=== PATIENT | female | born 2000 ===

== ENCOUNTER 2025-04-20 16:51 | Emergency (ER) | payer OTHER, SELFPAY ==
--- NOTE | ~2025-04-20 | XR_ITS ---
HISTORY: Anterior lateral ankle pain without history of trauma COMPARISON: None TECHNIQUE: 3 views of the right ankle were performed FINDINGS: No acute fracture or dislocation. No significant soft tissue swelling. Os trigonum is incidentally noted. The ankle mortise is preserved. Bone mineralization is age-appropriate. IMPRESSION: No acute fracture, dislocation or significant swelling. Reviewed, dictated and finalized at location A.
--- NOTE | 2025-04-20 16:53 | ED_ITS ---
HPI - Extremity Injury (Lower) General Chief Complaint: Extremity Injury, Lower Stated Complaint: R Ankle Pain Time Seen by Provider: 04/20/25 16:52 Source: patient Mode of arrival: ambulatory Limitations: no limitations History of Present Illness HPI Narrative: Corey is a 25-year-old female patient presenting to the clinic today with complaints of right ankle pain x1 week. She reports no known injury. 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 Is having pain to the anterior and right lateral ankle. Pain with ambulation and with range of motion. States pain radiates into her 2nd toe at times. Has taken Tylenol and iced it. Last menstrual period current-denies chance of . Related Data Allergies Allergy/AdvReac Type Severity Reaction Status Date / Time ibuprofen AdvReac Intermediate Dizziness Verified 04/20/25 17:05 Review of Systems Review of Systems: Pertinent positives per HPI. Patient denies any fever, chills, rash, headache, visual changes, dizziness, cough, runny nose, sore throat, shortness of breath, chest pain, palpitations, nausea, vomiting, diarrhea, constipation, abdominal pain, or any urinary issues. PMFSH Comments At the time of my signature, I reviewed and agree with the nursing past medical, surgical, social, and family history. There is no relevant family history pertinent to the patient complaint. Exam Narrative: General: Well-developed, well nourished, in no apparent distress Head: Normocephalic, atraumatic. Cardio: Regular rate and rhythm, s1 and s2 normal, no murmur appreciated. Resp: Clear to auscultation bilaterally, no rhonchi, rales, wheezing or rubs. Musculoskeletal: No deformity, non-tender to palpation, grossly normal range of motion, muscle strength strong and equal, peripheral pulse strong, no edema, no cyanosis, normal gait and station Course Course Emergency Course: Portions of this record may have been created with voice recognition software. Level of Care: Express Care Visit Vital Signs Vital signs: Vital Signs Temperature 36.6 C 04/20/25 17:01 Pulse Rate 72 04/20/25 17:01 Respiratory Rate 16 04/20/25 17:01 Blood Pressure 130/72 04/20/25 17:01 Pulse Oximetry 100 04/20/25 17:01 Oxygen Delivery Room Air 04/20/25 17:01 Temperature 36.6 C 04/20/25 17:01 Pulse Rate 72 04/20/25 17:01 Respiratory Rate 16 04/20/25 17:01 Blood Pressure 130/72 04/20/25 17:01 Pulse Oximetry 100 04/20/25 17:01 Oxygen Delivery Room Air 04/20/25 17:01 Vital signs reviewed MDM - Extremity Injury (Lower) MDM Narrative Medical decision making narrative: At the time of visit patient is resting comfortably on the exam table. Patient appears to be nontoxic. Diagnostics: X-ray of the right ankle was performed. X-ray was negative for any fracture or malalignment. Plan: I suspect patient has a foot sprain. Prescription for Medrol Dosepak was sent to the pharmacy. Supportive measures were discussed with the patient and they voiced understanding discharge instructions and agrees to treatment plan. Return precautions reviewed Differential Diagnosis Differential diagnosis: Likely ankle sprain and strain and ankle fracture Imaging Data Radiologist's impression: ITS Impressions Ankle X-Ray 04/20/25 17:30 IMPRESSION: No acute fracture, dislocation or significant swelling. Discharge Plan Discharge Clinical Impression: Foot sprain Qualifiers: Encounter type: initial encounter Laterality: right Qualified Code(s): S93.601A - Unspecified sprain of right foot, initial encounter Patient Disposition: Home Condition: Stable Instructions: Antibiotic Form, Foot Sprain (ED) Additional Instructions: Rest, ice, elevate, and wear ed wrap as directed Tylenol for pain as discussed. Gradually bear weight No running or sports until healed. Take Medrol Dosepak as prescribed Follow up with your PCP if symptoms persist more than 1 week. Patient Language: Maldivian Prescriptions: New methylprednisolone [Medrol (Bryce)] 4 mg tablets,dose pack See Rx Instructions PO .COMPLEX Qty: 21 0RF Rx Instructions: orally per package directions Follow-up/Referrals: UNKNOWN,DOCTOR [Non-Staff] - Time of Disposition: 17:36 Quality NIHSS Nursing Documentation ED NIHSS nursing documentation: reviewed/agree
--- OUTSIDE RECORDS SUMMARY | 2025-04-20 16:54 | XMS_ITS | Encounter Summary ---
Author Organization [facility] Address [address] [place] [address] Care Team Providers Care Pipe And Test Supervisor Name Role Phone Tien Jefferson MD Primary Care Provider [phone] Encounter Details Date Type Department Care Team (Latest Contact Info) Description 10/24/2006 Outpatient Historical [facility] Pediatrics - 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
--- OUTSIDE RECORDS SUMMARY | 2025-04-20 16:54 | XMS_ITS | Encounter Summary ---
Author Organization [facility] Address [address] [place] [address] Care Team Providers Care Cooling Room Attendant Name Role Phone Tien Jefferson MD Primary Care Provider [phone] Encounter Details Date Type Department Care Team (Late st Contact Info) Description 09/28/2001 Outpatient Historical [facility] Pediatrics - [facility] [address] [facility] [address] [address] Jamia Osman MD NO ADDRESS ON FILE Social History Tobacco Use Types Packs/Day Years Used Date Smoking Tobacco: Never Assessed Comments Unknown Sex and Gender Information Value Date Recorded Sex Assigned at Not on file 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
--- OUTSIDE RECORDS SUMMARY | 2025-04-20 16:54 | XMS_ITS | Encounter Summary ---
Author Organization [facility] Address [address] [place] [address] Care Team Providers Care General Farm Manager Name Role Phone Tien Jefferson MD Primary Care Provider [phone] Encounter Details Date Type Department Care Team (Latest Contact Info) Description 02/18/2008 Outpatient Historical [facility] Pediatrics [facility] [address] [facility] [address] [address] Jamia Osman MD NO ADDRESS ON FILE Acute Pharyngitis Social History Tobacco Use Types Packs/Day Years Used Date Smoking Tobacco: Never Assessed Comments Unknown Sex and Gender Information Value Date Recorded Sex Assigned at Not on file 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 INTERFACE SYSTEM Specimen from throat (specimen) 02/18/2008 10:29 PM CDT 02/18/2008 10:38 PM CDT Narrative INTERFACE SYSTEM - 02/19/2008 9:03 AM CDT called drs office and talked to mulugeta she checked demographic sheet and insurance and correct spelling is kacy vazquez. like in the computer. office spelled wrong on requisition 02/19/08 9:03 AMrj us Jamia Osman MD MICROBIOLOGY - GENERAL ORDERAB LES Final Result INTERFACE SYSTEM Refer to clinic/hospital department documented in this encounter Visit Diagnoses Diagnosis Acute pharyngitis documented in this encounter Care Teams General Farm Manager Relationship Specialty Start Date End Date Tien Jefferson MD [address] [address] PCP - General Internal Medicine 04/19/19 documented as of this encounter
--- OUTSIDE RECORDS SUMMARY | 2025-04-20 16:54 | XMS_ITS | Encounter Summary ---
Author Organization [facility] Address [address] [place] [address] Care Team Providers Care Financial Planning Assistant Name Role Phone Tien Jefferson MD Primary Care Provider [phone] Encounter Details Date Type Department Care Team (Late st Contact Info) Description 09/14/2001 Outpatient Historical [facility] Pediatrics - [facility] [address] [facility] [address] [address] Jamia Osman MD NO ADDRESS ON FILE Social History Tobacco Use Types Packs/Day Years Used Date Smoking Tobacco: Never Assessed Comments Unknown Sex and Gender Information Value Date Recorded Sex Assigned at Not on file Legal Sex Female 2:03 AM FAMILY LAW LEGAL ASSISTANT Gender Identity Not on file Sexual Orientation Not on file documented as of this encounter Plan of Treatment Not on file documented as of this encounter Visit Diagnoses Not on filedocumented in this encounter Care Teams Financial Planning Assistant Relationship Specialty Start Date End Date Tien Jefferson MD [address] [facility] [address] [place] [address] PCP - General Internal Medicine 04/19/19 documented as of this encounter
--- OUTSIDE RECORDS SUMMARY | 2025-04-20 16:54 | XMS_ITS | Encounter Summary ---
Author Organization [facility] Address 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
--- OUTSIDE RECORDS SUMMARY | 2025-04-20 16:54 | XMS_ITS | Encounter Summary ---
Author Organization [facility] Address [address] [place] [address] Care Team Providers Care Filler Wiper Name Role Phone Tien Jefferson MD Primary Care Provider [phone] Encounter Details Date Type Department Care Team (Late st Contact Info) Description 07/21/2000 Outpatient Historical [facility] Pediatrics - [facility] [address] [facility] [address] [address] Jamia Osman MD NO ADDRESS ON FILE Social History Tobacco Use Types Packs/Day Years Used Date Smoking Tobacco: Never Assessed Comments Unknown Sex and Gender Information Value Date Recorded Sex Assigned at Not on file 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
--- OUTSIDE RECORDS SUMMARY | 2025-04-20 16:54 | XMS_ITS | Encounter Summary ---
Author Organization [facility] Address [address] [place] [address] Care Team Providers Care Rice Drier Operator Name Role Phone Tien Jefferson MD Primary Care Provider [phone] Encounter Details Date Type Department Care Team (Late st Contact Info) Description 05/22/2001 Outpatient Historical [facility] Pediatrics - [facility] [address] [facility] [address] [address] Jamia Osman MD NO ADDRESS ON FILE Social History Tobacco Use Types Packs/Day Years Used Date Smoking Tobacco: Never Assessed Comments Unknown Sex and Gender Information Value Date Recorded Sex Assigned at Not on file Legal Sex Female 2:03 AM COMPLETIONS ENGINEER Gender Identity Not on file Sexual Orientation Not on file documented as of this encounter Plan of Treatment Not on file documented as of this encounter Visit Diagnoses Not on filedocumented in this encounter Care Teams Rice Drier Operator Relationship Specialty Start Date End Date Tien Jefferson MD [address] [facility] [address] [place] [address] PCP - General Internal Medicine 04/19/19 documented as of this encounter
--- OUTSIDE RECORDS SUMMARY | 2025-04-20 16:54 | XMS_ITS | Encounter Summary ---
Author Organization [facility] Address [address] [place] [address] Care Team Providers Care Turpentiner Name Role Phone Tien Jefferson MD Primary Care Provider [phone] Encounter Details Date Type Department Care Team (Late st Contact Info) Description 05/10/[address] 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
--- OUTSIDE RECORDS SUMMARY | 2025-04-20 16:54 | XMS_ITS | Encounter Summary ---
Author Organization [facility] Address [address] [place] [address] Care Team Providers Care Dope Edger Name Role Phone Tien Jefferson MD Primary Care Provider [phone] Encounter Details Date Type Department Care Team (Late st Contact Info) Description 04/24/2002 Outpatient Historical [facility] Pediatrics - [facility] [address] [facility] [address] [address] Stella Brothers MD [address] [facility] [address] [place] [address] Social History Tobacco Use Types Packs/Day Years Used Date Smoking Tobacco: Never Assessed Comments Unknown Sex and Gender Information Value Date Recorded Sex Assigned at Not on file 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 [address] [place] [address] PCP - General Internal Medicine 04/19/19 documented as of this encounter
--- OUTSIDE RECORDS SUMMARY | 2025-04-20 16:54 | XMS_ITS | Encounter Summary ---
Author Organization [facility] Address [address] [place] [address] Care Team Providers Care Senior Medical Billing Specialist Name Role Phone Tien Jefferson MD Primary Care Provider [phone] Encounter Details Date Type Department Care Team (Late st Contact Info) Description 10/13/2001 Outpatient Historical [facility] Pediatrics - [facility] [address] [facility] [address] [address] Jamia Osman MD NO ADDRESS ON FILE Social History Tobacco Use Types Packs/Day Years Used Date Smoking Tobacco: Never Assessed Comments Unknown Sex and Gender Information Value Date Recorded Sex Assigned at Not on file Legal Sex Female 2:03 AM BAND TACKER Gender Identity Not on file Sexual Orientation Not on file documented as of this encounter Plan of Treatment Not on file documented as of this encounter Visit Diagnoses Not on filedocumented in this encounter Care Teams Senior Medical Billing Specialist Relationship Specialty Start Date End Date Tien Jefferson MD [address] [facility] [address] [place] [address] PCP - General Internal Medicine 04/19/19 documented as of this encounter
--- OUTSIDE RECORDS SUMMARY | 2025-04-20 16:54 | XMS_ITS | Encounter Summary ---
Author Organization [facility] Address 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
--- OUTSIDE RECORDS SUMMARY | 2025-04-20 16:54 | XMS_ITS | Encounter Summary ---
Author Organization [facility] Address [address] [place] [address] Care Team Providers Care Machining Engineer Name Role Phone Tien Jefferson MD Primary Care Provider [phone] Encounter Details Date Type Department Care Team (Late st Contact Info) Description 03/23/2004 Outpatient Historical [facility] Pediatrics - [facility] [address] [facility] [address] [address] Dillan Stokes MD [address] [place], [place] [id number] [place] [address] Social History Tobacco Use Types Packs/Day Years Used Date Smoking Tobacco: Never Assessed Comments Unknown Sex and Gender Information Value Date Recorded Sex Assigned at Not on file Legal Sex Female 2:03 AM DAY CARE AIDE Gender Identity Not on file Sexual Orientation Not on file documented as of this encounter Plan of Treatment Not on file documented as of this encounter Visit Diagnoses Not on filedocumented in this encounter Care Teams Machining Engineer Relationship Specialty Start Date End Date Tien Jefferson MD [address] [place] [address] [address] [place] [address] PCP - General Internal Medicine 04/19/19 documented as of this encounter
--- OUTSIDE RECORDS SUMMARY | 2025-04-20 16:54 | XMS_ITS | Encounter Summary ---
Author Organization [facility] Address 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
--- OUTSIDE RECORDS SUMMARY | 2025-04-20 16:54 | XMS_ITS | Encounter Summary ---
Author Organization [facility] Address [address] [place] [address] Care Team Providers Care Dance Instructor Name Role Phone Tien Jeffreson MD Primary Care Provider [phone] Encounter Details Date Type Department Care Team (Late st Contact Info) Description 06/11/2007 Outpatient Historical [facility] Pediatrics - [facility] [address] [place] [facility] [address] [address] Jamia Osman MD NO ADDRESS ON FILE Social History Tobacco Use Types Packs/Day Years Used Date Smoking Tobacco: Never Assessed Comments Unknown Sex and Gender Information Value Date Recorded Sex Assigned at Not on file Legal Sex Female 2:03 AM WELT SEWER Gender Identity Not on file Sexual Orientation Not on file documented as of this encounter Plan of Treatment Not on file documented as of this encounter Visit Diagnoses Not on filedocumented in this encounter Care Teams Dance Instructor Relationship Specialty Start Date End Date Tien Jefferson MD [address] [facility] [address] [place] [address] PCP - General Internal Medicine 04/19/19 documented as of this encounter
--- OUTSIDE RECORDS SUMMARY | 2025-04-20 16:54 | XMS_ITS | Encounter Summary ---
Author Organization [facility] Address [address] [place] [address] Care Team Providers Care Panel Machine Operator Name Role Phone Tien Jefferson MD Primary Care Provider [phone] Encounter Details Date Type Department Care Team (Late st Contact Info) Description 10/20/2007 Outpatient Historical [facility] Pediatrics - [facility] [address] [facility] [address] [address] Jamia Osman MD NO ADDRESS ON FILE Social History Tobacco Use Types Packs/Day Years Used Date Smoking Tobacco: Never Assessed Comments Unknown Sex and Gender Information Value Date Recorded Sex Assigned at Not on file Legal Sex Female 2:03 AM RENAL NURSE Gender Identity Not on file Sexual Orientation Not on file documented as of this encounter Plan of Treatment Not on file documented as of this encounter Visit Diagnoses Not on filedocumented in this encounter Care Teams Panel Machine Operator Relationship Specialty Start Date End Date Tien Jefferson MD [address] [facility] [address] [place] [address] PCP - General Internal Medicine 04/19/19 documented as of this encounter
--- OUTSIDE RECORDS SUMMARY | 2025-04-20 16:54 | XMS_ITS | Encounter Summary ---
Author Organization [facility] Address [address] [place] [address] Care Team Providers Care Stamps Or Coins Salesperson Name Role Phone Tien Jefferson MD Primary Care Provider [phone] Encounter Details Date Type Department Care Team (Late st Contact Info) Description 12/23/2001 Outpatient Historical [facility]s - [facility] [address] [facility] [address] [address] Jamia Osman MD NO ADDRESS ON FILE Social History Tobacco Use Types Packs/Day Years Used Date Smoking Tobacco: Never Assessed Comments Unknown Sex and Gender Information Value Date Recorded Sex Assigned at Not on file Legal Sex Female 2:03 AM HAND DEVELOPER Gender Identity Not on file Sexual Orientation Not on file documented as of this encounter Plan of Treatment Not on file documented as of this encounter Visit Diagnoses Not on filedocumented in this encounter Care Teams Stamps Or Coins Salesperson Relationship Specialty Start Date End Date Tien Jefferson MD [address] [facility] [address] [place] [address] PCP - General Internal Medicine 04/19/19 documented as of this encounter
--- OUTSIDE RECORDS SUMMARY | 2025-04-20 16:54 | XMS_ITS | Encounter Summary ---
Author Organization [facility] Address [address] [place] [address] Care Team Providers Care Screen Operator Name Role Phone Tien Jefferson MD Primary Care Provider [phone] Encounter Details Date Type Department Care Team (Late st Contact Info) Description 04/12/2004 Outpatient Historical [facility] Pediatrics - [facility] [address] [facility] [address] [address] Jamia Osman MD NO ADDRESS ON FILE Social History Tobacco Use Types Packs/Day Years Used Date Smoking Tobacco: Never Assessed Comments Unknown Sex and Gender Information Value Date Recorded Sex Assigned at Not on file Legal Sex Female 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
--- OUTSIDE RECORDS SUMMARY | 2025-04-20 16:54 | XMS_ITS | Encounter Summary ---
Author Organization [facility] Address [address] [place] [address] Care Team Providers Care Chicken Cleaner Name Role Phone Tien Jefferson MD Primary Care Provider [phone] Encounter Details Date Type Department Care Team (Latest Contact Info) Description 10/20/2007 Outpatient Historical [facility] Pediatrics - [facility] [address] [facility] [address] [address] Jamia Osman MD NO ADDRESS ON FILE Acute Pharyngitis (Primary Dx) Social History Tobacco Use Types Packs/Day Years Used Date Smoking Tobacco: Never Assessed Comments Unknown Sex and Gender Information Value Date Recorded Sex Assigned at Not on file 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
--- OUTSIDE RECORDS SUMMARY | 2025-04-20 16:54 | XMS_ITS | Encounter Summary ---
Author Organization [facility] Address [address] [place] [address] Care Team Providers Care Manual Equipment Mechanic Name Role Phone Tien Jefferson MD Primary Care Provider Encounter Details Date Type Department Care Team (Latest Contact Info) Description 09/04/2001 Outpatient Historical [facility] [address] Dillan Stokes MD [address] [place], [place] [id number] [place] [address] Urinary tract infection, site not specified (Primary Dx) Social History Tobacco Use Types Packs/Day Years Used Date Smoking Tobacco: Never Assessed Comments Unknown Sex and Gender Information Value Date Recorded Sex Assigned at Not on file Legal Sex Female 2:03 AM ACCOUNT SERVICES ASSOCIATE Gender Identity Not on file Sexual Orientation Not on file documented as of this encounter Plan of Treatment Not on file documented as of this encounter Visit Diagnoses Diagnosis Urinary tract infection, site not specified- Primary documented in this encounter Care Teams Manual Equipment Mechanic Relationship Specialty Start Date End Date Tien Jefferson MD [address] [place] [address] [place] [address] PCP - General Internal Medicine 04/19/19 documented as of this encounter
--- OUTSIDE RECORDS SUMMARY | 2025-04-20 16:54 | XMS_ITS | Encounter Summary ---
Author Organization [facility] Address [address] [place] [address] Care Team Providers Care Manager Commercial Sales Name Role Phone Tien Jefferson MD Primary Care Provider [phone] Encounter Details Date Type Department Care Team (Late st Contact Info) Description 01/10/2004 Outpatient Historical [facility] Pediatrics - [facility] [address] [facility] [address] [address] Marlo Douglas MD [address] [facility] [address] [place] [address] Social History Tobacco Use Types Packs/Day Years Used Date Smoking Tobacco: Never Assessed Comments Unknown Sex and Gender Information Value Date Recorded Sex Assigned at Not on file Legal Sex Female 2:03 AM MILIEU COUNSELOR Gender Identity Not on file Sexual Orientation Not on file documented as of this encounter Plan of Treatment Not on file documented as of this encounter Visit Diagnoses Not on filedocumented in this encounter Care Teams Manager Commercial Sales Relationship Specialty Start Date End Date Tien Jefferson MD [address] [facility] [address] [place] [address] PCP - General Internal Medicine 04/19/19 documented as of this encounter
--- OUTSIDE RECORDS SUMMARY | 2025-04-20 16:54 | XMS_ITS | Encounter Summary ---
Author Organization [facility] Address [address] [place] [address] Care Team Providers Care Cone Marker Name Role Phone Tien Jefferson MD Primary Care Provider [phone] Encounter Details Date Type Department Care Team (Late st Contact Info) Description 05/24/2002 Outpatient Historical [facility] Pediatrics - [facility] [address] [facility] [address] [address] Jamia Osman MD NO ADDRESS ON FILE Social History Tobacco Use Types Packs/Day Years Used Date Smoking Tobacco: Never Assessed Comments Unknown Sex and Gender Information Value Date Recorded Sex Assigned at Not on file Legal Sex Female 2:03 AM NEW ACCOUNTS REPRESENTATIVE Gender Identity Not on file Sexual Orientation Not on file documented as of this encounter Plan of Treatment Not on file documented as of this encounter Visit Diagnoses Not on filedocumented in this encounter Care Teams Cone Marker Relationship Specialty Start Date End Date Tien Jefferson MD [address] [facility] [address] [place] [address] PCP - General Internal Medicine 04/19/19 documented as of this encounter
--- OUTSIDE RECORDS SUMMARY | 2025-04-20 16:54 | XMS_ITS | Encounter Summary ---
Author Organization [facility] Address [address] [place] [address] Care Team Providers Care Conservation Or Heritage Architect Name Role Phone Tien Jefferson MD Primary Care Provider [phone] Encounter Details Date Type Department Care Team (Late st Contact Info) Description 03/10/2001 Outpatient Historical [facility] Pediatrics - [facility] [address] [facility] [address] [address] Stella Brothers MD [address] [facility] [address] [place] [address] Social History Tobacco Use Types Packs/Day Years Used Date Smoking Tobacco: Never Assessed Comments Unknown Sex and Gender Information Value Date Recorded Sex Assigned at Not on file 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
--- OUTSIDE RECORDS SUMMARY | 2025-04-20 16:54 | XMS_ITS | Encounter Summary ---
Author Organization [employer] Address [address] [place] [address] Care Team Providers Care Pipeline Technician Name Role Phone Tien Jefferson MD Primary Care Provider [phone] Encounter Details Date Type Department Care Team (Late st Contact Info) Description 03/11/2007 Outpatient Historical [facility] [place] [address] [place] [address] Abdominal Pain, Other Specified Site (Primary Dx) Social History Tobacco Use Types Packs/Day Years Used Date Smoking Tobacco: Never Assessed Comments Unknown Sex and Gender Information Value Date Recorded Sex Assigned at Not on file Legal Sex Female 2:03 AM ACADEMIC AFFAIRS SPECIALIST Gender Identity Not on file Sexual Orientation Not on file documented as of this encounter Plan of Treatment Not on file documented as of this encounter Visit Diagnoses Diagnosis Abdominal pain, other specified site- Primary documented in this encounter Care Teams Pipeline Technician Relationship Specialty Start Date End Date Tien Jefferson MD [facility] [address] [address] PCP - General Internal Medicine 04/19/19 documented as of this encounter
--- OUTSIDE RECORDS SUMMARY | 2025-04-20 16:54 | XMS_ITS | Encounter Summary ---
Author Organization [facility] Address [address] [place] [address] Care Team Providers Care Registered Medical Transcriptionist Name Role Phone Tien Jefferson MD Primary Care Provider [phone] Encounter Details Date Type Department Care Team (Late st Contact Info) Description 10/28/2000 Outpatient Historical [facility] Pediatrics - [facility] [address] [facility] [address] [address] Jamia Osman MD NO ADDRESS ON FILE Social History Tobacco Use Types Packs/Day Years Used Date Smoking Tobacco: Never Assessed Comments Unknown Sex and Gender Information Value Date Recorded Sex Assigned at Not on file Legal Sex Female 2:03 AM VACUUM PLASTIC FORMING MACHINE OPERATOR Gender Identity Not on file Sexual Orientation Not on file documented as of this encounter Plan of Treatment Not on file documented as of this encounter Visit Diagnoses Not on filedocumented in this encounter Care Teams Registered Medical Transcriptionist Relationship Specialty Start Date End Date Tien Jefferson MD [address] [facility] [address] [place] [address] PCP - General Internal Medicine 04/19/19 documented as of this encounter
--- OUTSIDE RECORDS SUMMARY | 2025-04-20 16:54 | XMS_ITS | Encounter Summary ---
Author Organization [facility] Address [address] [place] [address] Care Team Providers Care Aircraft Accessories Mechanic Name Role Phone Tien Jefferson MD Primary Care Provider [phone] Encounter Details Date Type Department Care Team (Late st Contact Info) Description 03/27/2000 Outpatient Historical [facility] Pediatrics - [facility] [address] [facility] [address] [address] Marlo Douglas MD [address] [facility] [address] [place] [address] Social History Tobacco Use Types Packs/Day Years Used Date Smoking Tobacco: Never Assessed Comments Unknown Sex and Gender Information Value Date Recorded Sex Assigned at Not on file Legal Sex Female 2:03 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
--- OUTSIDE RECORDS SUMMARY | 2025-04-20 16:54 | XMS_ITS | Encounter Summary ---
Author Organization [facility] Address [address] [place] [address] Care Team Providers Care Filter Tank Operator Name Role Phone Tien Jefferson MD Primary Care Provider [phone] Encounter Details Date Type Department Care Team (Latest Contact Info) Description 04/21/2000 Outpatient Historical [facility] Jamia Roque MD NO ADDRESS ON FILE Routine infant or child health check (Primary Dx) Social History Tobacco Use Types Packs/Day Years Used Date Smoking Tobacco: Never Assessed Comments Unknown Sex and Gender Information Value Date Recorded Sex Assigned at Not on file Legal Sex Female 2:03 AM DIE GRINDER Gender Identity Not on file Sexual Orientation Not on file documented as of this encounter Plan of Treatment Not on file documented as of this encounter Visit Diagnoses Diagnosis Routine or child health check- Primary documented in this encounter Care Teams Filter Tank Operator Relationship Specialty Start Date End Date Tien Jefferson MD [address] [place] [address] PCP - General Internal Medicine 04/19/19 documented as of this encounter
--- OUTSIDE RECORDS SUMMARY | 2025-04-20 16:54 | XMS_ITS | Encounter Summary ---
Author Organization [facility] Address [address] [place] [address] Care Team Providers Care Child Care Supervisor Name Role Phone Tien Jefferson MD Primary Care Provider [phone] Encounter Details Date Type Department Care Team (Late st Contact Info) Description 03/19/2001 Outpatient Historical [facility] - [facility] [address] [facility] [address] [address] Jamia Osman MD NO ADDRESS ON FILE Social History Tobacco Use Types Packs/Day Years Used Date Smoking Tobacco: Never Assessed Comments Unknown Sex and Gender Information Value Date Recorded Sex Assigned at Not on file Legal Sex Female 2:03 AM MEDICAL GRADE SHOEMAKER Gender Identity Not on file Sexual Orientation Not on file documented as of this encounter Plan of Treatment Not on file documented as of this encounter Visit Diagnoses Not on filedocumented in this encounter Care Teams Child Care Supervisor Relationship Specialty Start Date End Date Tien Jefferson MD [address] [facility] [address] [place] [address] PCP - General Internal Medicine 04/19/19 documented as of this encounter
--- OUTSIDE RECORDS SUMMARY | 2025-04-20 16:54 | XMS_ITS | Clinical Summary ---
Author Organization [facility] Address [address] [place] [address] Care Team Providers Care Lather Apprentice Name Role Phone Unknown, Provider Primary Care Provider Unavaila ble Source Comments [facility]non-owned Affiliates and Associated Physician Practices is amultiple site organization consisting of ambulatory clinics and hospital sitesin [place], [place], [place] and [place]. This disclosure is being madepursuant to the Care Everywhere program and may not contain all information available regarding this patient. Last updated 18.[facility] Allergies No known active allergies Medications * Be aware that medications may not be up to date on this document. Alwaysverify current medications with the patient. No known medications Immunizations Immunization Administration Dates Next Due MENINGOCOCCAL ACWY (MCV4P) VAC IM 09/07/2016 Social History Tobacco Use Types Packs/Day Years Used Date Smoking Tobacco: Never Assessed Comments Unknown Sex and Gender Information Value Date Recorded Sex Assigned at Not on file Legal Sex Female 9:57 AM CDT Gender Identity Not on file Sexual Orientation Not on file Plan of Treatment Health Maintenance Due Date Last Done Comments HIV SCREENING 2014 HPV VACCINE (1 - 3-dose series) 2014 CHLAMYDIA/GONORRHEA SCREENING 2015 HEPATITIS C SCREENING 04/12/2017 DTAP/TDAP/TD VACCINES (1 - Tdap) 2018 HEPATITIS B VACCINE (1 of 3 - 19+ 3-dose series) 2018 COVID-19 VACCINE (1 - 2023-2 5 season) 2024 DEPRESSION SCREENING 12/01/2024 INFLUENZA VACCINE (Season Ended) 2025 ZOSTER VACCINE (1 of 2) 2049 MENINGOCOCCAL GROUPS A/C/Y/W VACCINE Completed 09/07/2016 HIB VACCINE Aged Out No longer eligi ble based on patient's age to complete this topic MENINGOCOCCAL (Group B) VACC INE SHARED DECISION-MAKING Aged Out No longer eligibl e based on patient's age to complete this topic PNEUMOCOCCAL VACCINE Aged Out No long er eligible based on patient's age to complete this topic [place] [address] [facility] Care Teams Lather Apprentice Relationship Specialty Start Date End Date Unknown, Provider PCP - General 09/07/16
--- OUTSIDE RECORDS SUMMARY | 2025-04-20 16:54 | XMS_ITS | Encounter Summary ---
Author Organization [facility] Address [address] [place] [address] Care Team Providers Care Spiral Spring Winder Name Role Phone Tien Jefferson MD Primary Care Provider [phone] Encounter Details Date Type Department Care Team (Late st Contact Info) Description 09/04/2001 Outpatient Historical [facility] Pediatrics - [facility] [address] [facility] [address] [address] Dillan Stokes MD [address] [place], [place] [id number] [place] [address] Social History Tobacco Use Types Packs/Day Years Used Date Smoking Tobacco: Never Assessed Comments Unknown Sex and Gender Information Value Date Recorded Sex Assigned at Not on file Legal Sex Female 2:03 AM MRI SPECIAL PROCEDURES TECHNOLOGIST Gender Identity Not on file Sexual Orientation Not on file documented as of this encounter Plan of Treatment Not on file documented as of this encounter Visit Diagnoses Not on filedocumented in this encounter Care Teams Spiral Spring Winder Relationship Specialty Start Date End Date Tien Jefferson MD [address] [place] [address] [address] [place] [address] PCP - General Internal Medicine 04/19/19 documented as of this encounter
--- OUTSIDE RECORDS SUMMARY | 2025-04-20 16:54 | XMS_ITS | Encounter Summary ---
Author Organization [facility] Address [address] [place] [address] Care Team Providers Care Manager Market Research Name Role Phone Tien Jefferson MD Primary Care Provider Encounter Details Date Type Department Care Team (Late st Contact Info) Description 07/14/2002 Outpatient Historical [facility] Pediatrics - [facility] [address] [facility] [address] [address] Jamia Osman MD NO ADDRESS ON FILE Social History Tobacco Use Types Packs/Day Years Used Date Smoking Tobacco: Never Assessed Comments Unknown Sex and Gender Information Value Date Recorded Sex Assigned at Not on file Legal Sex Female 2:03 AM FOOTWEAR SALES COORDINATOR Gender Identity Not on file Sexual Orientation Not on file documented as of this encounter Plan of Treatment Not on file documented as of this encounter Visit Diagnoses Not on filedocumented in this encounter Care Teams Manager Market Research Relationship Specialty Start Date End Date Tien Jefferson MD [address] [facility] [address] [place] [address] PCP - General Internal Medicine 04/19/19 documented as of this encounter
--- OUTSIDE RECORDS SUMMARY | 2025-04-20 16:54 | XMS_ITS | Encounter Summary ---
Author Organization [facility] Address [address] [place] [address] Care Team Providers Care Biology Teacher Name Role Phone Tien Jefferson MD Primary Care Provider [phone] Encounter Details Date Type Department Care Team (Late st Contact Info) Description 12/14/[address] [facility] Pediatrics - [facility] [address] [facility] [address] [address] Jamia Osman MD NO ADDRESS ON FILE Social History Tobacco Use Types Packs/Day Years Used Date Smoking Tobacco: Never Assessed Comments Unknown Sex and Gender Information Value Date Recorded Sex Assigned at Not on file Legal Sex Female 2:03 AM HEALTHCARE ARCHITECT Gender Identity Not on file Sexual Orientation Not on file documented as of this encounter Plan of Treatment Not on file documented as of this encounter Visit Diagnoses Not on filedocumented in this encounter Care Teams Biology Teacher Relationship Specialty Start Date End Date Tien Jefferson MD [address] [facility] [address] [place] [address] PCP - General Internal Medicine 04/19/19 documented as of this encounter
--- OUTSIDE RECORDS SUMMARY | 2025-04-20 16:54 | XMS_ITS | Encounter Summary ---
Author Organization [employer] Address [address] [place] [address] Care Team Providers Care Director Of Digital Marketing Name Role Phone Tien Jefferson MD Primary Care Provider Encounter Details Date Type Department Care Team (Latest Contact Info) Description 03/10/2001 Outpatient Historical [facility], [address] Stella Brothers MD [address] [place] [address] Urinary tract infection, site not specified (Primary Dx) Social History Tobacco Use Types Packs/Day Years Used Date Smoking Tobacco: Never Assessed Comments Unknown Sex and Gender Information Value Date Recorded Sex Assigned at Not on file Legal Sex Female 2:03 AM CERTIFIED RESIDENTIAL MEDICATION AIDE Gender Identity Not on file Sexual Orientation Not on file documented as of this encounter Plan of Treatment Not on file documented as of this encounter Visit Diagnoses Diagnosis Urinary tract infection, site not specified- Primary documented in this encounter Care Teams Director Of Digital Marketing Relationship Specialty Start Date End Date Tien Jefferson MD [address] [facility] [address] [place] [address] PCP - General Internal Medicine 5/20/19 documented as of this encounter
--- OUTSIDE RECORDS SUMMARY | 2025-04-20 16:54 | XMS_ITS | Encounter Summary ---
Author Organization [facility] Address [address] [place] [address] Care Team Providers Care Copy Center Associate Name Role Phone Tien Jefferson MD Primary Care Provider [phone] Encounter Details Date Type Department Care Team (Late st Contact Info) Description 12/29/2002 Outpatient Historical [facility] Pediatrics - [facility] [address] [facility] [address] [address] Jamia Osman MD NO ADDRESS ON FILE Social History Tobacco Use Types Packs/Day Years Used Date Smoking Tobacco: Never Assessed Comments Unknown Sex and Gender Information Value Date Recorded Sex Assigned at Not on file Legal Sex Female 2:03 AM 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
--- OUTSIDE RECORDS SUMMARY | 2025-04-20 16:54 | XMS_ITS | Encounter Summary ---
Author Organization [facility] Address [address] [place] [address] Care Team Providers Care I&C Technician Name Role Phone Tien Jefferson MD Primary Care Provider [phone] Encounter Details Date Type Department Care Team (Late st Contact Info) Description 12/03/2006 Outpatient Historical [facility] Pediatrics - [facility] [address] [facility] [address] [address] Jamia Osman MD NO ADDRESS ON FILE Social History Tobacco Use Types Packs/Day Years Used Date Smoking Tobacco: Never Assessed Comments Unknown Sex and Gender Information Value Date Recorded Sex Assigned at Not on file Legal Sex Female 2:03 AM PSYCH SPECIALIST Gender Identity Not on file Sexual Orientation Not on file documented as of this encounter Plan of Treatment Not on file documented as of this encounter Visit Diagnoses Not on filedocumented in this encounter Care Teams I&C Technician Relationship Specialty Start Date End Date Tien Jefferson MD [address] [facility] [address] [place] [address] PCP - General Internal Medicine 04/19/19 documented as of this encounter
--- OUTSIDE RECORDS SUMMARY | 2025-04-20 16:54 | XMS_ITS | Encounter Summary ---
Author Organization [facility] Address [address] [place] [address] Care Team Providers Care Quality Assurance Name Role Phone Tien Jefferson MD Primary Care Provider [phone] Encounter Details Date Type Department Care Team (Late st Contact Info) Description 04/21/2000 Outpatient Historical [facility] Pediatrics - [facility] [address] [facility] [address] [address] Jamia Osman MD NO ADDRESS ON FILE Social History Tobacco Use Types Packs/Day Years Used Date Smoking Tobacco: Never Assessed Comments Unknown Sex and Gender Information Value Date Recorded Sex Assigned at Not on file Legal Sex Female 2:03 AM STONE LAYER Gender Identity Not on file Sexual Orientation Not on file documented as of this encounter Plan of Treatment Not on file documented as of this encounter Visit Diagnoses Not on filedocumented in this encounter Care Teams Quality Assurance Relationship Specialty Start Date End Date Tien Jefferson MD [address] [facility] [address] [place] [address] PCP - General Internal Medicine 04/19/19 documented as of this encounter
--- OUTSIDE RECORDS SUMMARY | 2025-04-20 16:54 | XMS_ITS | Encounter Summary ---
Author Organization [facility] Address [address] [place] [address] Care Team Providers Care Fraud Analyst Name Role Phone Tien Jefferson MD Primary Care Provider [phone] Encounter Details Date Type Department Care Team (Late st Contact Info) Description 10/24/2006 Outpatient Historical [facility] - [facility] [address] [facility] [address] [address] Jamia Osman MD NO ADDRESS ON FILE Social History Tobacco Use Types Packs/Day Years Used Date Smoking Tobacco: Never Assessed Comments Unknown Sex and Gender Information Value Date Recorded Sex Assigned at Not on file 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
--- OUTSIDE RECORDS SUMMARY | 2025-04-20 16:54 | XMS_ITS | Encounter Summary ---
Author Organization [facility] Address [address] [place] [address] Care Team Providers Care Braid Cutter Name Role Phone Tien Jefferson MD Primary Care Provider Encounter Details Date Type Department Care Team (Late st Contact Info) Description 04/21/2000 Outpatient Historical [facility] - [facility] [address] [facility] [address] [address] Jamia Osman MD NO ADDRESS ON FILE Social History Tobacco Use Types Packs/Day Years Used Date Smoking Tobacco: Never Assessed Comments Unknown Sex and Gender Information Value Date Recorded Sex Assigned at Not on file 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
--- OUTSIDE RECORDS SUMMARY | 2025-04-20 16:54 | XMS_ITS | Encounter Summary ---
Author Organization [facility] Address [address] [place] [address] Care Team Providers Care Oracle Ebs Architect Name Role Phone Tien Jefferson MD Primary Care Provider [phone] Encounter Details Date Type Department Care Team (Late st Contact Info) Description 01/07/2007 Outpatient Historical [facility] Pediatrics - [facility] [address] [facility] [address] [address] Jamia Osman MD NO ADDRESS ON FILE Social History Tobacco Use Types Packs/Day Years Used Date Smoking Tobacco: Never Assessed Comments Unknown Sex and Gender Information Value Date Recorded Sex Assigned at Not on file 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
--- OUTSIDE RECORDS SUMMARY | 2025-04-20 16:54 | XMS_ITS | Encounter Summary ---
Author Organization [facility] Address [address] [place] [address] Care Team Providers Care Senior Agricultural Assistant Name Role Phone Tien Jefferson MD Primary Care Provider [phone] Encounter Details Date Type Department Care Team (Late st Contact Info) Description 07/09/2004 Outpatient Historical [facility] - [place] [facility] [address] [facility] [address] [address] Jamia Osman MD NO ADDRESS ON FILE Social History Tobacco Use Types Packs/Day Years Used Date Smoking Tobacco: Never Assessed Comments Unknown Sex and Gender Information Value Date Recorded Sex Assigned at Not on file 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 [address] [place] [address] PCP - General Internal Medicine 04/19/19 documented as of this encounter
--- OUTSIDE RECORDS SUMMARY | 2025-04-20 16:55 | XMS_ITS | Encounter Summary ---
Author Organization [facility] Address [address] [place] [address] Care Team Providers Care Printed Circuit Boards Inspector Name Role Phone Tien Jefferson MD Primary Care Provider [phone] Encounter Details Date Type Department Care Team (Late st Contact Info) Description 1999 Outpatient Historical [facility] Pediatrics - [facility] [address] [facility] [address] [address] Jamia Osman MD NO ADDRESS ON FILE Social History Tobacco Use Types Packs/Day Years Used Date Smoking Tobacco: Never Assessed Comments Unknown Sex and Gender Information Value Date Recorded Sex Assigned at Not on file 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
--- OUTSIDE RECORDS SUMMARY | 2025-04-20 16:55 | XMS_ITS | Encounter Summary ---
Author Organization [facility] Address [address] [place] [address] Care Team Providers Care Wide Area Network Administrator Name Role Phone Tien Jefferson MD Primary Care Provider [phone] Encounter Details Date Type Department Care Team (Late st Contact Info) Description 10/23/2005 Outpatient Historical [facility] Pediatrics - [facility] [address] [facility] [address] [address] Jamia Osman MD NO ADDRESS ON FILE Social History Tobacco Use Types Packs/Day Years Used Date Smoking Tobacco: Never Assessed Comments Unknown Sex and Gender Information Value Date Recorded Sex Assigned at Not on file Legal Sex Female 2:03 AM COP Gender Identity Not on file Sexual Orientation Not on file documented as of this encounter Plan of Treatment Not on file documented as of this encounter Visit Diagnoses Not on filedocumented in this encounter Care Teams Wide Area Network Administrator Relationship Specialty Start Date End Date Tien Jefferson MD [address] [facility] [address] [place] [address] PCP - General Internal Medicine 04/19/19 documented as of this encounter
--- OUTSIDE RECORDS SUMMARY | 2025-04-20 16:55 | XMS_ITS | Continuity of Care Document ---
Author Organization [facility] Address [address] [place] [address] Phone Care Team Providers Care Postmaster Relief Name Role Phone Shaheed Lainez DO Unavailable Unavailab le Allergies, Adverse Reactions, Alerts Substance Reaction Status Criticality No Known Allergies Active No Inform ation Medications Medication Instructions Dosage Effective Dates (start - stop) Status Comments Mobic 15 mg tablet take 1 tablet by oral route every day - Active Aubra 0.1 mg-20 mcg tablet take 1 tablet by oral route every day 1.00 tablet - Active Mobic 15 mg tablet take 1 tablet by oral route every day - No Longer Active Procedures Procedure Date RADEX KNE COMPL 4/MORE VIEWS OFFICE/OUTPATIENT VISIT NEW OFFICE/OUTPATIENT VISIT EST POSTOP FOLLOW-UP VISIT POSTOP FOLLOW-UP VISIT OFFICE/OUTPATIENT VISIT EST OFFICE/OUTPATIENT VISIT EST POSTOP FOLLOW-UP VISIT POSTOP FOLLOW-UP VISIT OFFICE/OUTPATIENT VISIT EST Advance Directives Directive Yes / No Effective Date File Name No Information Encounters Encounter Description Practice Location Reason(s) For Visit Diagnoses Date Provider Providers Copied on Encounter [facility], [address], [place], [address], [phone] [facility] No Information 1 [place]. [address], [place], [place], [id number] . tel: [phone] [facility], [address], [place], [address], [place] [phone] [facility] No Information 1 Migel nelson. [address], [place], [place], [id number] . tel: [phone] OFFICE/OUTPA TIENT VISIT [facility], [address], [place], [address], [place] tel:[phone] [facility] Pain in right kneePatellar tendinitis of right knee 1 Starr Hobbs. [address], [place], [address], [place]. tel: [phone] OFFICE/OUTPA TIENT VISIT [facility], [address] [place] [address], [address], [place] [phone] [facility] Body mass index (BMI) 26.0-26.9, adultLeft foot painPatellofemo ral disorder of right knee 9 Scerba Dalton. [address] [facility] [address], [place], [place], [id number] . tel: [phone] [facility], [address] [place] [address], [address], [place] [phone] [facility] Nondisplaced transverse fracture of right patella, subsequent encounter for closed fracture with routine healing 7 Stazzone Bharathi. [address] [place] [address], [id number] . tel: [phone] [facility], [address] [place] [address], [address], [place] [phone] [facility] Closed nondisplaced transverse fracture of right patella with routine healing, subsequent encounterS/P hardware removal 7 Stazzone Bharathi. [address] [place] [address], [id number] . tel: [phone] OFFICE/OUTPA TIENT VISIT EST [facility], [address], [address], [place] tel:[phone] [facility] [place] Closed nondisplaced transverse fracture of right patella with routine healing, subsequent encounterEncoun ter for other preprocedural examination Bowen-3 0-201 7 Stazzone Bharathi. [address] [place], [place], [id number] . tel: [phone] [facility], [address] [place] [address], [address], [place] tel:[phone] [facility] Pain due to internal orthopedic prosthetic devices, implants and grafts, initial encounter 7 Stazzone Bharathi. [address] [place] [address], [id number] . tel: [phone] OFFICE/OUTPA TIENT VISIT [facility], [address] [place] [address], [address], [place] tel:[phone] [facility] Closed nondisplaced transverse fracture of right patella with routine healing, subsequent encounter 7 Stazzone Bharathi. [address] [place] [address], [id number] . tel: [phone] [facility], [address] [place] [address], [address], [place] tel:[phone] [facility] Closed displaced transverse fracture of right patella with routine healing 7 Stazzone Bharathi. [address] [place] [address], [id number] . tel: [phone] [facility], [address] [place] [address], [address], [place] tel:[phone] [facility] Closed displaced transverse fracture of right patella with routine healing - 7 Stazzone Bharathi. [address] [place] [address], [id number] . tel: [phone] [facility], [address] [place] [address], [address], [place] tel:[phone] [facility] Closed displaced transverse fracture of right patella with routine healing 7 Stazzone Bharathi. [address] [place] [address], [id number] . tel: [phone] [facility], [address] [place] [address], [address], [place] tel:[phone] [facility] Closed displaced transverse fracture of right patella with routine healing 6 Stazzone Bharathi. [address] [place] [address], [id number] . tel: [phone] [facility], [address] [place] [address], [address], [place] tel:[phone] [facility] Displaced transverse fracture of right patella, initial encounter for closed fracture 6 Stazzone Bharathi. [address] [place] [address], [id number] . tel: [phone] OFFICE/OUTPA TIENT VISIT EST [facility], [address] [place] [address], [address], [place] [phone] [facility] Closed displaced transverse fracture of right patella, initial encounterEncoun ter for pre-operative examination 6 Stazzone Bharathi. [address] [place] [address], [id number] . tel: [phone] [facility], [address] [place] [address], [address], [place] [phone] [facility] Midline low back pain without sciatica 5 Mil Puga. [address], [place], [address]. tel: [phone] [facility], [address] [place] [address], [address], [place] [phone] [facility] Low back pain Aug-2 4-201 5 Mil Puga. [address] [facility] [address], [place], [address]. tel: [phone] [facility], [address] [place] [address], [address], tel:[phone] [facility] Closed fracture of foot 4 Mil Puga. [address] [facility] [address], [place], [address]. tel: [phone] [facility], [address] [place] [address], [address], [place] tel:[phone] [facility] Closed fracture of foot 4 Mil Puga. [address] [facility] [address], [place], [address]. tel: [phone] Referring Provider: Jamia Rodriguez, [address], [place], [address] . tel:[phone] [facility], [address] [place] [address], [address], [place] tel:[phone] [facility] Nonunion of fracture 4 Mil Puga. [address] [facility] [address] [facility] [address], [place], [address]. tel: [phone] [facility], [address] [place] [address], [address], [place] tel:[phone] [facility] Post-op (chief complaint) Nonunion of fracture 4 Mil Puga. [address] [facility] [address] [facility] [address] [facility] [address], [place], [address]. tel: [phone] Family History Family Member Type Diagnosis Age At Onset Mother Problem (finding) Alive and well Father Problem (finding) Alive and well Payers Payer name Insurance type Covered democrat ID Authoriza tion(s) [employer] Choice Fund Open Acces s Plus E2 [id number] Social History Type Description Quantity Date Captured Comments Alcohol Use Details Unknown May-14-2021 Caffeine Use Details Unknown Tobacco Use Status No Information Smoking Status No Information Sex Female Chief Complaint And Reason For Visit No Information Reason For Referral Reason For Referral No Information Plan Of Treatment Date Type Action Status Referral Ordered: RADEX KNE COMPL 4/MORE VIEWS RT knee ordered Referral Ordered: RADEX KNE COMPL 4/MORE VIEWS RT ordered Referral Ordered: MRI SPI CANAL&CNTS LMBR C-MATRL back,lumbar Appointment date/timeframe: 11/10/2015 ordered Referral Ordered: RADEX SPI LUMBOSAC MINIMUM 4 VIEWS ordered Referral Ordered: RADEX ANKLE COMPL MINIMUM 3 VIEWS LT ordered Referral Ordered: RADEX FOOT 2 VIEWS LT ordered Referral Ordered: RADEX FOOT COMPL MINIMUM 3 VIEWS LT ordered History Of Present Illness Encounter Date Complaint History Of Prese nt Illness No Information Functional Status Date Functional Assessmen t No Information Instructions Date Instruction Additional Infor mation Ice or heat for comfort Related to Patellofemoral disorder of right knee Ice as tolerated Related to Montoya llofemoral disorder of right knee Activity as tolerated. Related t o Patellofemoral disorder of right knee Giving encouragement to exercise Related to Body mass index (BMI) 26.0-26.9, adult Assessments Type Assessment Date No Information Patient Care Teams Name Effective Dates (start - stop) Status Members No Information
--- OUTSIDE RECORDS SUMMARY | 2025-04-20 16:55 | XMS_ITS | Encounter Summary ---
Author Organization [facility] Address 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 [address] [place] [address] PCP - General Internal Medicine 04/19/19 documented as of this encounter
--- OUTSIDE RECORDS SUMMARY | 2025-04-20 16:55 | XMS_ITS | Encounter Summary ---
Author Organization [facility] Address [address] [place] [address] Phone Care Team Providers Care Building Associate Name Role Phone Fany Aguilar MD Primary Care Provider [phone] Maryam Huggins Primary Care Provider [phone] Encounter Details Date Type Department Care Team (Late st Contact Info) Description 10/04/2022 Orders Only [facility] Scanning, Provider Social History Tobacco Use Types Packs/Day Years Used Date Smoking Tobacco: Never Assessed Comments Unknown Sex and Gender Information Value Date Recorded Sex Assigned at Not on file Legal Sex Female 8:34 PM INTRAMURAL DIRECTOR Gender Identity Not on file Sexual Orientation Not on file documented as of this encounter Plan of Treatment Not on file documented as of this encounter Procedures Procedure Name Priority Date/Time Associated Diagnosis Comments SCAN - RADIOLOGY/IMAGING 10/04/2022 documented in this encounter Results * SCAN - RADIOLOGY/IMAGING (10/04/2022) Anatomical Region Laterality Modality Other us Provider Scanning Final Result documented in this encounter Visit Diagnoses Not on filedocumented in this encounter Additional Health Concerns Infection Onset Date Last Indicated Resolved Time COVID: Suspected 01/23/2025 01/23/2025 01/23/2025 12:42 PM INTRAMURAL DIRECTOR COVID: Suspected 01/23/2025 01/23/2025 01/23/2025 6:51 PM INTRAMURAL DIRECTOR documented as of this encounter Care Teams Building Associate Relationship Specialty Start Date End Date Fany Aguilar MD [address] [facility] [address] [place], [place] [id number] PCP - General 03/31/21 12/20/24 Maryam Huggins PA [address] [place] [address] PCP - General Family Medicine 12/21/24 documented as of this encounter
--- OUTSIDE RECORDS SUMMARY | 2025-04-20 16:55 | XMS_ITS | Encounter Summary ---
Author Organization [facility] Address [address] [place] [address] Care Team Providers Care X Ray Equipment Tester Name Role Phone Tien Jefferson MD Primary Care Provider [phone] Encounter Details Date Type Department Care Team (Late st Contact Info) Description 10/01/2004 Outpatient Historical [facility] - [facility] 2002 [address] [facility] [address] [address] Stella Brothers MD [address] [facility] [address] [place] [address] Social History Tobacco Use Types Packs/Day Years Used Date Smoking Tobacco: Never Assessed Comments Unknown Sex and Gender Information Value Date Recorded Sex Assigned at Not on file Legal Sex Female 2:03 AM MESSENGER OFFICE Gender Identity Not on file Sexual Orientation Not on file documented as of this encounter Plan of Treatment Not on file documented as of this encounter Visit Diagnoses Not on filedocumented in this encounter Care Teams X Ray Equipment Tester Relationship Specialty Start Date End Date Tien Jefferson MD [address] [facility] [address] [place] [address] PCP - General Internal Medicine 04/19/19 documented as of this encounter
--- OUTSIDE RECORDS SUMMARY | 2025-04-20 16:55 | XMS_ITS | Encounter Summary ---
Author Organization [facility] Address [address] [place] [address] Care Team Providers Care Social Work Associate Name Role Phone Tien Jefferson MD Primary Care Provider [phone] Encounter Details Date Type Department Care Team (Late st Contact Info) Description 01/01/2005 Outpatient Historical [facility] Pediatrics - [facility] [address] [facility] [address] [address] Jamia Osman MD NO ADDRESS ON FILE Social History Tobacco Use Types Packs/Day Years Used Date Smoking Tobacco: Never Assessed Comments Unknown Sex and Gender Information Value Date Recorded Sex Assigned at Not on file 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
--- OUTSIDE RECORDS SUMMARY | 2025-04-20 16:55 | XMS_ITS | Encounter Summary ---
Author Organization [facility] Address [address] [place] [address] Care Team Providers Care Biological Science Technician Fish Name Role Phone Tien Jefferson MD Primary Care Provider [phone] Encounter Details Date Type Department Care Team (Late st Contact Info) Description 01/26/2005 Outpatient Historical [facility] Pediatrics - [facility] [address] [facility] [address] [address] Jamia Osman MD NO ADDRESS ON FILE Social History Tobacco Use Types Packs/Day Years Used Date Smoking Tobacco: Never Assessed Comments Unknown Sex and Gender Information Value Date Recorded Sex Assigned at Not on file Legal Sex Female 2:03 AM SIDE TRIMMER Gender Identity Not on file Sexual Orientation Not on file documented as of this encounter Plan of Treatment Not on file documented as of this encounter Visit Diagnoses Not on filedocumented in this encounter Care Teams Biological Science Technician Fish Relationship Specialty Start Date End Date Tien Jefferson MD [address] [facility] [address] [place] [address] PCP - General Internal Medicine 04/19/19 documented as of this encounter
--- OUTSIDE RECORDS SUMMARY | 2025-04-20 16:55 | XMS_ITS | Encounter Summary ---
Author Organization [employer] Address [address] [place] [address] Care Team Providers Care Rig Supervisor Name Role Phone Tien Jefferson MD Primary Care Provider [phone] Encounter Details Date Type Department Care Team (Latest Contact Info) Description 03/27/2000 Inpatient Historical [facility] IN A BED Spraggs, Dillan Cortez MD [address] [facility] [place] [address] Marlo Douglas MD [address] [facility] [address] [place] [address] Other and unspecified noninfectious gastroenteritis and colitis(558.9) (Primary Dx) Social History Tobacco Use Types Packs/Day Years Used Date Smoking Tobacco: Never Assessed Comments Unknown Sex and Gender Information Value Date Recorded Sex Assigned at Not on file Legal Sex Female 2: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
--- OUTSIDE RECORDS SUMMARY | 2025-04-20 16:55 | XMS_ITS | Clinical Summary ---
Author Organization [facility] Address [address] [place] [address] Care Team Providers Care Branch Library Clerk Name Role Phone Tien Jefferson MD Primary Care Provider [phone] Allergies No known active allergies Medications ISOtretinoin (ACCUTANE) 40 mg capsule Take 1 Capsule (40 mg) by mouth 2 times daily. 60 Capsule 05/21/2019 Active Active Problems Patient Care Coordination No te Formatting of this note migh t be different from the original. 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, implant, and graft 06/16/2017 Traumatic closed displaced fracture of right pat fiona 11/16/2016 Resolved Problems Problem Noted Date Diagnosed Date Resolved Date Fracture of left foot with nonunion 12/07/2013 07/03/2017 Pyelonephritis, 03/01, normal U/S and VCUG 03/04/2011 07/03/2017 GERD, normal small bowel bx 03/0703/04/2011 07/03/2017 Recurrent Otitis, s/p BMTs 03/04/2011 0 07/03/2017 Overweight, BMI >85% 06/13, lipid panel 05/1207/06/2010 07/03/2017 Overview (06/02/2014): 05/12 labs: Cholesterol 177 (HDL 46, LDL 110), Triglycerides 105 06/13 labs: Cholesterol 135 (HDL 49, LDL 71), Triglycerides 73 MOM 5'7 , DAD 5'11 12/26/2009 07/03/20 17 Immunizations Immunization Administration Dates Next Due (ADACEL/BOOSTRIX)(10 YR UP) TDAP VACCINE, 0.5ML, IM 07/06/2010 (GARDASIL)(9-45 YRS) HUMAN PAPILLOMAVIRUS VACCINE, TYPES 6, 11, 16, 18, QUADRIVALENT (4VHPV), 3 DOSE, IM 05/06/2013,05/04/2012,07/06/2010 (HAVRIX/VAQTA)(12 MO-18 YRS) HEPATITIS A VACCINE 0.5 ML PED/ADOL 2 DOSE, IM 07/06/2010,11/01/2009 (INFANRIX)(6 WKS-6 YRS) DIPT HERIA, TETANUS TOXOIDS, AND ACCELLULAR PERTUSSIS VACCINE (DTAP), 0.5 ML IM 07/26/2003,07/21/2000,1999,08/29,1999 (IPOL)(6 WKS AND UP) POLIOVI KEELY VACCINE, INACTIVATED (IPV), 3 DOSE, SUBCUT OR IM 07/23/2006,1999,1999,06/26 (M-M-R II/PRIORIX)(12 MO UP) MEASLES, MUMPS AND RUBELLA VIRUS VACCINE, 0.5 ML IM/SUBCUT 07/23/2006,04/21/2000 (VARIVAX)(12 MOS UP)VARICELL A VIRUS VACCINE (PF) 0.5 ML, SUB CUT 11/01/2009,04/21/2000 HIB, Unspecified Formulation 07/21/2000, 1999,1999,06/26 Hepatitis B Vaccine 04/21/2000,01/22/2000,1998 Influenza A (H1N1) Vaccine PF IM 11/01/2009 Influenza Seasonal Unspecifi ed Formulation IM 10/01/2016 Influenza Vaccine Split 3+ Yrs PF IM 12/30/2011, 11/01/2009 Meningococcal A Conjugate Vaccine IM 07/06/2010 Meningococcal Polysaccharide Vaccine SQ 09/07/2016 Pneumococcal conjugate, unsp ecified formulation 07/21/2000,04/21/2000 Family History Medical History Relation Name Comments Asthma Brother Cancer Father skin Diabetes Father Healthy Father Hypertension Father Heart Disease Maternal Grandmother Afib Stroke Maternal Grandmother Healthy Mother Hypertension Mother No Known Problems Mother Seizures Mother Healthy Sister Colon Cancer Neg Hx Lung Cancer Neg Hx Relation Name Status Comments Brother Father Alive Maternal Grandmother Mother Alive Sister Social History Tobacco Use Types Packs/Day Years Used Date Smoking Tobacco: Every Day Smokeless Tobacco: Never Alcohol Use Standard Drinks/Week Comments Yes 0 (1 standard drink = 0.6 oz pur e alcohol) Comments No Sex and Gender Information Value Date Recorded Sex Assigned at Not on file 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 Gender Identity Not on file Sexual Orientation Not on file Occupation Industry Job Start Date Job End Date Not on file Not on file Not on file Not on file Last Filed Vital Signs Vital Sign Reading Time Taken Comments Blood Pressure 120/72 11/21/2017 10:01 AM SKIP PITMAN Pulse 70 11/21/2017 10:01 AM SKIP PITMAN Temperature 37.2 C (98.9 F) 08/26/2017 11:10 AM CDT Respiratory Rate 16 08/26/2017 11:10 AM CDT Oxygen Saturation 98% 11/21/2017 10:01 AM SKIP PITMAN Inhaled Oxygen Concentration - - Weight 75.6 kg (166 lb 9.6 oz) 11/21/2017 10:01 AM SKIP PITMAN Height 162.6 cm (5' 4 ) 11/21/2017 10:01 AM SKIP PITMAN Body Mass Index 28.6 11/21/2017 10:01 AM SKIP PITMAN Plan of Treatment Health Maintenance Due Date Last Done Comments CERVICAL CANCER SCREENING 2020 HPV/Cotest (21-29) 2020 PAP SMEAR 2020 DTAP/TDAP/TD VACCINES (7 - T d or Tdap) 07/06/2020 07/06/2010, 07/23/2006, 07/26/2003, Additional history exists INFLUENZA VACCINE (#1) 2024 , 10/01/2016, 12/30/2011, Additional history exists Preventative Visit- Commercial 12/01/2024 0 07/03/2017, 06/01/2014, 05/06/2013, Additional history exists HEPATITIS B VACCINES Completed 04/21/2000, 01/22/2000, 1999 HPV VACCINES Completed 05/06/2013, 03/2012, 07/06/2010 Medical Devices Implanted Type Area Financial Reporting Director Device Identifier Shelf Expiration Date Model / Serial / Lot Screw Lpscannulated Blunt Tip 4.0 Implanted:Qty: 1 on 11/16/2016 by Bharathi Bush MD at [facility] Screw Right: [employer] AR-5051-30 / LOAD NOV 16 Description:All [employer] comp onents are processed on requisition,[id number]. Screw Lo Pro Screw Blunt Tip 4.0 X 32 Implanted:Qty: 1 on 11/16/2016 by Bharathi Bush MD at [facility] Screw Right: [employer] AR-5051-32 / LOAD NOV 16 Description:loaner tray Explanted Type Area Financial Reporting Director Device Identifier Shelf Expiration Date Model / Serial / Lot Accutrac 2 Screw Implanted:Qty: 1 on 12/07/2013 at [facility] Explanted:Qty: 1 on 06/16/2017 at [facility] Screw ACUMED [employer] 30-0624 / / Wire Guide Acutrak2 .062x9.25in 80-0950 - [id number] Explanted:Qty: 1 on 12/07/2013 by Edd Jaeger MD at [facility] Wire Left: Foot [employer] 80-0950 / / STERILIZED DEC 06, 2013 LOAD 25 1.35 K Wire Explanted:Qty: 2 on 11/16/2016 at [facility] Wire Right: [employer] AR-5050-01 / LOAD NOV 16 Description:loaner [place] [address] RX MEDIMPACT Member Subscriber Plan / Payer (Ef fective for All Dates) Name:Aylin Gonzales Relation to Subscriber:Self Name:Aylin Gonzales Payer ID:Not on file Group ID:[id number] Type:RX Commercial Address: [address] [employer] Commercial [phone] [id number] (Work) [address] [place] [address] Advance Directives For more information, please contact: [phone] * Full Code (Latest Code Status on File) Date Activated Date Inactivated Comments 06/16/2017 6:43 AM 06/16/2017 1:22 PM * Full Code Date Activated Date Inactivated Comments 06/16/2017 5:48 AM 06/16/2017 6:43 AM * Full Code Date Activated Date Inactivated Comments 11/16/2016 9:45 PM 11/17/2016 6:18 PM * Full Code Date Activated Date Inactivated Comments 04/06/2013 10:10 AM 04/06/2013 4:27 PM * Full Code Date Activated Date Inactivated Comments 04/06/2013 9:30 AM 04/06/2013 10:10 AM Care Teams Branch Library Clerk Relationship Specialty Start Date End Date Tien Jefferson MD [address] [place] [address] PCP - General Internal Medicine 04/19/19
--- OUTSIDE RECORDS SUMMARY | 2025-04-20 16:55 | XMS_ITS | Encounter Summary ---
Author Organization [facility] Address [address] [place] [address] Care Team Providers Care Pole Peeler Name Role Phone Tien Jefferson MD Primary Care Provider [phone] Encounter Details Date Type Department Care Team (Late st Contact Info) Description 1999 Outpatient Historical [facility] Pediatrics - [facility] [address] [facility] [address] [address] Jamia Osman MD NO ADDRESS ON FILE Social History Tobacco Use Types Packs/Day Years Used Date Smoking Tobacco: Never Assessed Comments Unknown Sex and Gender Information Value Date Recorded Sex Assigned at Not on file 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
--- OUTSIDE RECORDS SUMMARY | 2025-04-20 16:55 | XMS_ITS | Encounter Summary ---
Author Organization [facility] Address [address] [place] [address] Care Team Providers Care Industrial Relations Officer Name Role Phone Tien Jefferson MD Primary Care Provider [phone] Encounter Details Date Type Department Care Team (Late st Contact Info) Description 07/26/2006 Outpatient Historical [facility] Pediatrics - [facility] [address] [facility] [address] [address] Stella Brothers MD [address] [facility] [address] [place] [address] Social History Tobacco Use Types Packs/Day Years Used Date Smoking Tobacco: Never Assessed Comments Unknown Sex and Gender Information Value Date Recorded Sex Assigned at Not on file Legal Sex Female 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
--- OUTSIDE RECORDS SUMMARY | 2025-04-20 16:55 | XMS_ITS | Encounter Summary ---
Author Organization [facility] Address [address] [place] [address] Care Team Providers Care Prefinish Operator Name Role Phone Maryam Huggins Primary Care Provider [phone] Reason for Visit * Reason Onset Date Comments Test Results 04/14/2025 Encounter Details Date Type Department Care Team ([facility] Contact Info) Description 04/14/2025 Telephone [facility] Family Medicine [address] [address] Maryam Huggins PA [address] [address] Test Results Social History Tobacco Use Types Packs/Day Years Used Date Smoking Tobacco: Every Day Vaping Passive Smoke Exposure: Never AUDIT-C Answer Date Recorded Q1: How often do you have a drink containing alc ohol? 2-3 times a week 03/16/2025 Q2: How many drinks containi ng alcohol do you have on a typical day when you are drinking? 3 or 4 03/16/2025 Q3: How often do you have si x or more drinks on one occasion? Never 03/16/2025 PHQ-2 Answer Date Recorded PHQ-2 Total Score (If total score is 3 or more points, staff should administer the PHQ-9) 0 03/16/2025 PHQ-9 Answer Date Recorded PHQ-9 Total Score 2 12/21/2024 Comments No Sex and Gender Information Value Date Recorded Sex Assigned at Not on file Legal Sex Female 8:34 PM SPECIMEN PREPARATION ASSISTANT Gender Identity Not on file Sexual Orientation Not on file documented as of this encounter Miscellaneous Notes * Telephone Encounter - Radha Hwang LPN - 04/15/2025 10:59 AM CDT Noted. * Telephone Encounter - Vonda Acosta - 04/15/2025 10:53 AM CDT Call Back Caller???s Concern: Patient returned call to practice regarding test results. PROCESS MOLD TECHNICIAN inform patient ofresults in chart. Verbalized Understanding. Does message need to be routed? No * Telephone Encounter - Radha Hwang LPN - 04/15/2025 10:27 AM CDT Call placed, no answer, lmtc * Telephone Encounter - Radha Hwang LPN - 04/14/2025 2:16 PM CDT Results available under media tab. * Telephone Encounter - Gabby Quiroz - 04/14/2025 2:12 PM CDT Test Result Request Type of test: Nerve Conduction Date [facility] test: [facility] No Additional Questions/Comments: Patient awaiting results, please reach out and relay. Does message need to be routed? Yes-Action Needed documented in this encounter Plan of Treatment Not on file documented as of this encounter Visit Diagnoses Not on filedocumented in this encounter Care Teams Prefinish Operator Relationship Specialty Start Date End Date Maryam Huggins PA [address] [place] [address] PCP - General Family Medicine 12/21/24 documented as of this encounter
--- OUTSIDE RECORDS SUMMARY | 2025-04-20 16:55 | XMS_ITS | Encounter Summary ---
Author Organization [employer] Address 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
--- OUTSIDE RECORDS SUMMARY | 2025-04-20 16:55 | XMS_ITS | Clinical Summary ---
[facility] Organization [facility] Address [facility] [place] [address] Care Team Providers Care Dye Jig Operator Name Role Phone Maryam Huggins Primary Care Provider [phone] Allergies No known active allergies Medications cetirizine (ZyrTEC) 10 mg tablet Take 1 tablet (10 mg total) by mouth daily 30 tablet 3 11/10/20 24 Active fluticasone propionate (FLONASE) 50 mcg/actuation nasal spray Administer 2 sprays into each nostril daily 1 each 3 11/10/20 24 025 Discontinued Active Problems Problem Noted Date Diagnosed Date Seasonal allergies 12/21/2024 Assessment & Plan (12/21/2024 8:12 AM QUARTZ MOUNTER): Chronic. Controlled. Continue to follow with ENT, continue Zyrtec and Flonase as needed. Class 1 obesity due to exces s calories without serious comorbidity with body mass index (BMI) of 32.0 to 32.9 in adult 12/21/2024 Assessment & Plan (03/16/2025 9:53 AM CDT): Assessment & Plan (12/21/2024 8:11 AM QUARTZ MOUNTER): Exercise 5 days a week, 30 mins per day recommended. Eat a heart healthy diet consisting of good, healthy protein (eggs, nuts, peanut butter, chicken, fish, turkey, less pork/beef), lots of vegetables, less carbohydrates and less sugar. Vaping nicotine dependence, tobacco product 12/02 Assessment & Plan (12/21/2024 8:13 AM QUARTZ MOUNTER): Chronic. Patient not ready to quit at this time but would like to try again in the future. - Discussed options and recommend trying nicotine patches and gum. She can use the low-dose of both of these [id number]. Chronic diarrhea 02/20/2023 Assessment & Plan (12/21/2024 8:11 AM QUARTZ MOUNTER): Chronic. Stable. Continue to use Imodium as needed. May have been diagnosed with IBS in the past. 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) - [facility] [address] [facility] [address] [place] [address] Selene Solomon NP Impacted cerumen of right ear (Primary Dx); Sensation of pressure in ear, bilateral; Environmental and seasonal allergies 03/17/2025 Results Follow-Up [facility] Family Medicine [address] [place] [phone] Maryam Huggins PA XR Knee Right 3 Vw 03/16/2025 10:01 AM CDT - 03/16/2025 11:59 PM CDT Hospital Encounter [facility] [address] [place] [address] Chronic pain of right knee; History of patellar fracture Discharge Disposition: Discharge to home or self care 03/16/2025 9:30 AM CDT Office Visit [facility] [address] [phone] Maryam Huggins PA Left leg numbness (Primary Dx); History of foot fracture; Chronic pain of right knee; History of patellar fracture; Class 1 obesity due to excess calories without serious comorbidity with body mass index (BMI) of 32.0 to 32.9 in adult 02/08/2025 Telephone [facility]) - [facility] [address] [facility] 11th [place] [address] [place] [phone] Mge Omer, 01/26/2025 8:15 AM QUARTZ MOUNTER Office Visit [address] [phone] Margot Hand PA Non-recurrent acute suppurative otitis media of both ears without spontaneous rupture of tympanic membranes (Primary Dx) 01/25/[address] [phone] Maryam Huggins PA Symptom Based Call 01/23/2025 5:41 PM QUARTZ MOUNTER - 01/23/2025 11:59 PM QUARTZ MOUNTER Hospital Encounter [address] [id number] Discharge Disposition: Discharge to home or self care 01/23/2025 5:35 PM QUARTZ MOUNTER - 01/23/2025 11:59 PM QUARTZ MOUNTER Hospital Encounter [address] [id number] Nasopharyngitis Discharge Disposition: Discharge to home or self care 01/23/2025 12:15 PM QUARTZ MOUNTER Office Visit [facility] at [address] [phone] Bailey Fonseca PA Nasopharyngitis (Primary Dx) 01/23/2025 Results Follow-Up [facility] at [address] [address] Bailey Fonseca PA Influenza A/B, RSV, and COVID-19 PCR Nasopharyngeal, Throat culture Throat from Last 3 Months Immunizations Immunization Administration Dates Next Due DTaP / IPV 07/23/2006, 9,1999,06/26 DTaP, Unspecified 07/26/2003, 0,1999,08/29,1999 H1N1 Inj Preservative Free 11/01/2009 HPV, Unspecified 05/06/2013,05/04/2012, 0 Hep A, Pediatric 07/06/2010,11/01/2009 Hep B Vaccine 04/21/2000,01/22/2000,1999 HiB 07/21/2000, 9,1999,06/26 IPV 07/23/2006, 9,1999,06/26 Influenza, Quadrivalent, Spl it, Preservative Free, Intramuscular 10/10/2022,09/11/2020 Influenza, Trivalent, Cell Culture-based MDCK, Preservative Free, Antibiotic Free, Intramuscular 12/03/2019 Influenza, Trivalent, Preser vative Free, Intramuscular 09/18/2024,09/06/2016 Influenza, Unspecified 08/31/2023(Deferr ed: Patient Refused),08/31/2023(Deferred: Patient decision),10/01/2016,12/30/2011,2008 MMR 07/23/2006,04/21/2000 MMRV 07/23/2006,04/21/2000 Meningococcal Conjugate (Menveo) 07/06/2010 Meningococcal MCV4, Unspecified 09/07/2016 Pfizer SARS-CoV-2 Monovalent Vaccination (12+ Yrs) PURPLE 04/11/2021,03/21/2021 Pneumococcal Conjugate, Unspecified 07/21/2000,0 04/21/2000 Tdap 09/18/2024,07/06/2010 Varicella 11/01/2009,04/21/2000 Surgical History Surgery Date Site/Laterality Comments KNEE SURGERY ANKLE SURGERY FRACTURE SURGERY 2012, 2015,2016 Medical History Medical History Date Comments Anxiety and depression Ear problems Family History Medical History Relation Name Comments Asthma Brother Cancer Father Diabetes Father Hypertension Father Skin cancer Father Snoring Father No Known Problems Maternal Grandfather Colon cancer Maternal Grandmother Stroke Maternal Grandmother Epilepsy Mother Hypertension Mother Seizures Mother No Known Problems Paternal Grandfather No Known Problems Paternal Grandmother No Known Problems Sister Relation Name Status Comments Brother Alive Father Alive Maternal Grandfather Maternal Grandmother Mother Alive Paternal Grandfather Unknown Paternal Grandmother Unknown Sister Alive Social History Tobacco Use Types Packs/Day Years Used Date Smoking Tobacco: Every Day Vaping Passive Smoke Exposure: Never Tobacco Cessation:Ready to Q uit: Yes AUDIT-C Answer Date Recorded Q1: How often [...] on file Legal Sex Female 8:34 PM QUARTZ MOUNTER Gender Identity Not on file Sexual Orientation Not on file Obstetrics History Last Filed Vital Signs Vital Sign Reading Time Taken Comments Blood Pressure 110/62 03/16/2025 9:27 AM CDT Pulse 78 03/16/2025 9:27 AM CDT Temperature 36.7 C (98 F) 03/16/2025 9:27 AM CDT Respiratory Rate 16 03/16/2025 9:27 AM CDT Oxygen Saturation 98% 03/16/2025 9:27 AM CDT Inhaled Oxygen Concentration - - Weight 86.5 kg (190 lb 9.6 oz) 03/16/2025 9:27 A M CDT Height 162.6 cm (5' 4 ) 03/16/2025 9:27 AM CDT Body Mass Index 32.72 03/16/2025 9:27 AM CDT Plan of Treatment Health Maintenance Due Date Last Done Comments Hepatitis C Screening 1999 Pneumococcal vaccine <65 (1 of 1 - PPSV23) 2005 07/21/2000, 04/21/2000 Regular Well Visit/Exam 18-64 2017 Cervical Cancer Screening 05/26/2021 05/26/2020 Covid-19 Vaccine (2023-2 5 season) 2024 04/11/2021, 03/21/2021 Depression Screening 03/16/2026 03/16/2025, 01/26/2025, 12/21/2024, Additional history exists DTaP/Tdap/Td Vaccine (8 - Td or Tdap) 09/18/2034 09/18/2024, 07/06/2010, 07/23/2006, Additional history exists Hepatitis B Screening Completed 04/21/2000 , 01/22/2000, 1999 Varicella Vaccines Completed 11/01/2009, 0 07/23/2006, 04/21/2000, Additional history exists HPV Vaccines Completed 05/06/2013, 0603/2012, 07/06/2010 Influenza Vaccine Completed 09/18/2024, , 09/11/2020, Additional history exists Procedures Procedure Name Priority Date/Time Associated Diagnosis Comments XR KNEE RIGHT 3 VIEWS Schedule Routine, Read Routine (OP Routine) 03/16/2025 10:16 AM CDT Chronic pain of right knee History of patellar fracture INFLUENZA A/B, RSV, AND COVID-19 PCR Routine 01/23/2025 5:35 PM QUARTZ MOUNTER Nasopharyngitis THROAT CULTURE Routine 01/23/2025 5:35 PM QUARTZ MOUNTER Nasopharyngitis POC INFLUENZA A/B, COVID-19 ANTIGEN Routine 01/23/2025 12:41 PM QUARTZ MOUNTER Nasopharyngitis POCT RAPID STREP Routine 01/23/2025 12:3 2 PM QUARTZ MOUNTER Nasopharyngitis HM PAP SMEAR Routine 05/26/2020 from Last 3 Months or Most Recently Relevant to Health Maintenance Results * XR Knee Right 3 Vw (03/16/2025 10:16 AM CDT) Anatomical Region Laterality Modality Lower Extremities, Knee Right Computed Radiography 03/16/2025 4:25 PM CDT Narrative 03/16/2025 4:43 PM CDT EXAM DESCRIPTION: XR KNEE RIGHT 3 VIEWS REASON FOR STUDY: chronic right knee pain Rt knee pain after patella surgery in 2015 FINDINGS: Three views submitted without comparison. No acute fracture. Alignment is normal. Lucency in the patella is consistent with prior intervention. The joint spaces appear within normal limits. Small effusion. IMPRESSION: Small right knee effusion. Lucencies in the patella likely representing prior extensor mechanism intervention. This can be correlated with patient's surgical history. THIS IS AN ELECTRONICALLY VERIFIED FINAL REPORT 03/16/2025 4:43 PM - Electronically signed by Pilo HILL: SERGIO Report ID: [id number] Reading Location: [id number] Procedure Note Pilo Lee MD - 03/16/2025 EXAM DESCRIPTION: XR KNEE RIGHT 3 VIEWS REASON FOR STUDY: chronic right knee pain Rt knee pain after patella surgery in 2016 FINDINGS: Three views submitted without comparison. No acute fracture. Alignment is normal. Lucency in the patella isconsistent with prior intervention. The joint spaces appear within normal limits.Small effusion. IMPRESSION: Small right knee effusion. Lucencies in the patella likely representing prior extensor mechanism intervention. This can be correlated with patient's surgical history. THIS IS AN ELECTRONICALLY VERIFIED FINAL REPORT 03/16/2025 4:43 PM - Electronically signed by Pilo Lee M.D. MF: SERGIO Report ID: [id number] Reading Location: [id number] Maryam ROTHMAN IMG XR PROCEDURES Final R esult * Influenza A/B, RSV, and COVID-19 PCR Nasopharyngeal (01/23/2025 5:35 PM QUARTZ MOUNTER) COVID-19 RNA Negative Negative Influenza A RNA Negative Negative [facility] Influenza B RNA Negative Negative [facility] RSV RNA Negative Negative [facility] Comment: Interpretive data: Testing performed by [facility]. This test is performed using the mobifriends Xpert Xpress CoV-2/Flu/RSV plus assay. This is a multiplex, real-time reverse transcriptase PCR assay intended for the qualitative detection of nucleic acid from SARS-CoV-2, influenza A, influenza B, and respiratory syncytial virus. This assay has been cleared by the [place] Food and Drug administration. The performance characteristics have been verified by the [facility]. Results must be considered in the clinical context, and a negative result does not rule out infection. Interpretive Data last revised 2023 Nasopharyngeal 01/23/2025 5: 35 PM QUARTZ MOUNTER 01/23/2025 6:06 PM QUARTZ MOUNTER Narrative [facility] - 01/23/2025 6:49 PM QUARTZ MOUNTER Is the Patient experiencing symptoms consistent with COVID?->Yes Bailey ROTHMAN LAB MICROBIOLOGY - GENER AL ORDERABLES Final Result [facility] [address] Department [place] [address] * Throat culture Throat (01/23/2025 5:35 PM QUARTZ MOUNTER) Report Final Report: No growth of pathogens. Comment:Testing performed by : [facility], [address] [facility], [place]., [address] Throat 01/23/2025 5:35 PM QUARTZ MOUNTER 01/23/2025 8:41 PM QUARTZ MOUNTER Narrative [facility] - 01/24/2025 5:58 PM QUARTZ MOUNTER Testing performed by [facility]biology Laboratory ([phone]). Bailey ROTHMAN LAB MICROBIOLOGY - GENER AL ORDERABLES Final Result Performing Organization Address City/[facility]/ZIP Co de Phone Number KATINA BONE [address] Department [place] [address] * POC Influenza A/B, COVID-19 antigen (01/23/2025 12:41 PM QUARTZ MOUNTER) Influenza A Ag, POC Negative Negative [facility] Influenza B Ag, POC Negative Negative [facility] COVID-19 Ag POC Presumptive Negative Presumptive Negative, Invalid [facility] Nasal 01/23/2025 12:4 1 PM QUARTZ MOUNTER Bailey ROTHMAN POINT OF CARE TEST ORDER JIMMY Final Result Performing Organization Address [facility] de Phone Number [facility] [address] [place] [address] * POCT rapid strep A (01/23/2025 12:32 PM QUARTZ MOUNTER) Rapid Strep A, POC Negative Negative Swab 01/23/2025 12:3 2 PM QUARTZ MOUNTER Bailey ROTHMAN POINT OF CARE TEST ORDER JIMMY Final Result * HM PAP SMEAR (05/26/2020) Historical Provider HEALTH MAINTENANCE Final Result from Last 3 Months or Most Recently Relevant to Health Maintenance Insurance [employer] Address: [address] [place] [id number] [employer] Address: [facility] [id number] [place] [phone] Care Teams Dye Jig Operator Relationship Specialty Start Date End Date Maryam Huggins PA [address] [place] [address] PCP - General Family Medicine 12/21/24
--- OUTSIDE RECORDS SUMMARY | 2025-04-20 16:55 | XMS_ITS | Encounter Summary ---
Author Organization [facility] Address [address] [place] [address] Care Team Providers Care Emergency Room Specialist Name Role Phone Tien Jefferson MD Primary Care Provider [phone] Encounter Details Date Type Department Care Team (Late st Contact Info) Description 11/03/2004 Outpatient Historical [facility] Pediatrics - [facility] [address] [facility] [address] [address] Jamia Osman MD NO ADDRESS ON FILE Social History Tobacco Use Types Packs/Day Years Used Date Smoking Tobacco: Never Assessed Comments Unknown Sex and Gender Information Value Date Recorded Sex Assigned at Not on file 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
--- OUTSIDE RECORDS SUMMARY | 2025-04-20 16:55 | XMS_ITS | Encounter Summary ---
Author Organization [facility] Address [address] [place] [address] Care Team Providers Care Office Machine Servicer Apprentice Name Role Phone Tien Jefferson MD Primary Care Provider [phone] Encounter Details Date Type Department Care Team (Late st Contact Info) Description 1999 Outpatient Historical [facility] Pediatrics - [facility] [address] [facility] [address] [address] Stella Brothers MD [address] [facility] [address] [place] [address] Social History Tobacco Use Types Packs/Day Years Used Date Smoking Tobacco: Never Assessed Comments Unknown Sex and Gender Information Value Date Recorded Sex Assigned at Not on file 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
--- OUTSIDE RECORDS SUMMARY | 2025-04-20 16:55 | XMS_ITS | Encounter Summary ---
Author Organization [facility] Address [address] [place] [address] Care Team Providers Care Utility Person Name Role Phone Tien Jefferson MD Primary Care Provider [phone] Encounter Details Date Type Department Care Team (Late st Contact Info) Description 07/26/2003 Outpatient Historical [facility] Pediatrics - [facility] [address] [facility] [address] [address] Jamia Osman MD NO ADDRESS ON FILE Social History Tobacco Use Types Packs/Day Years Used Date Smoking Tobacco: Never Assessed Comments Unknown Sex and Gender Information Value Date Recorded Sex Assigned at Not on file 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
--- OUTSIDE RECORDS SUMMARY | 2025-04-20 16:55 | XMS_ITS | Encounter Summary ---
Author Organization [facility] Address [address] [place] [address] Care Team Providers Care Inventory Taker Name Role Phone Tien Jefferson MD Primary Care Provider [phone] Encounter Details Date Type Department Care Team (Late st Contact Info) Description 1999 Outpatient Historical [facility] Pediatrics - [facility] [address] [facility] [address] [address] Marlo Douglas MD [address] [facility] [address] [place] [address] Jamia Osman MD NO ADDRESS ON FILE Social History Tobacco Use Types Packs/Day Years Used Date Smoking Tobacco: Never Assessed Comments Unknown Sex and Gender Information Value Date Recorded Sex Assigned at Not on file 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
--- OUTSIDE RECORDS SUMMARY | 2025-04-20 16:55 | XMS_ITS | Encounter Summary ---
Author Organization [facility] Address [address] [place] [address] Care Team Providers Care Employment Service Specialist Name Role Phone Tien Jefferson MD Primary Care Provider [phone] Encounter Details Date Type Department Care Team (Late st Contact Info) Description 1999 Outpatient Historical [facility] Pediatrics - [facility] [address] [facility] [address] [address] Jamia Osman MD NO ADDRESS ON FILE Social History Tobacco Use Types Packs/Day Years Used Date Smoking Tobacco: Never Assessed Comments Unknown Sex and Gender Information Value Date Recorded Sex Assigned at Not on file 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
--- OUTSIDE RECORDS SUMMARY | 2025-04-20 16:55 | XMS_ITS | Encounter Summary ---
Author Organization [facility] Address [address] [place] [address] Care Team Providers Care Knowledge Manager Name Role Phone Tien Jefferson MD Primary Care Provider [phone] Encounter Details Date Type Department Care Team (Late st Contact Info) Description 01/22/[address] 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
--- OUTSIDE RECORDS SUMMARY | 2025-04-20 16:55 | XMS_ITS | Encounter Summary ---
Author Organization [facility] Address [address] [place] [address] Care Team Providers Care Cooper Helper Name Role Phone Tien Jefferson MD Primary Care Provider [phone] Encounter Details Date Type Department Care Team (Late st Contact Info) Description 04/15/2005 Outpatient Historical [facility] Pediatrics - [facility] [address] [facility] [address] [address] Jamia Osman MD NO ADDRESS ON FILE Social History Tobacco Use Types Packs/Day Years Used Date Smoking Tobacco: Never Assessed Comments Unknown Sex and Gender Information Value Date Recorded Sex Assigned at Not on file 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
--- OUTSIDE RECORDS SUMMARY | 2025-04-20 16:55 | XMS_ITS | Encounter Summary ---
Author Organization [facility] Address [address] [place]: [place] [address] Care Team Providers Care Hardwood Floor Installation Helper Name Role Phone Tien Jefferson MD Primary Care Provider [phone] Encounter Details Date Type Department Care Team (Late st Contact Info) Description 1999 Inpatient Historical Stella Brothers MD [address] [facility] [address] [place] [address] Single liveborn, born in hospital, delivered by delivery (Primary Dx) Social History Tobacco Use Types Packs/Day Years Used Date Smoking Tobacco: Never Assessed Comments Unknown Sex and Gender Information Value Date Recorded Sex Assigned at Not on file 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
--- OUTSIDE RECORDS SUMMARY | 2025-04-20 16:55 | XMS_ITS | Encounter Summary ---
Author Organization [facility] Address [address] [place] [address] Care Team Providers Care Travel Guide Name Role Phone Tien Jefferson MD Primary Care Provider [phone] Encounter Details Date Type Department Care Team (Late st Contact Info) Description 08/23/2005 Outpatient Historical [facility] - [facility] [address] [facility] [address] [address] Jamia Osman MD NO ADDRESS ON FILE Social History Tobacco Use Types Packs/Day Years Used Date Smoking Tobacco: Never Assessed Comments Unknown Sex and Gender Information Value Date Recorded Sex Assigned at Not on file 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 [address] [place] [address] PCP - General Internal Medicine 04/19/19 documented as of this encounter
--- OUTSIDE RECORDS SUMMARY | 2025-04-20 16:55 | XMS_ITS | Encounter Summary ---
Author Organization [facility] Address [address] [place] [address] Care Team Providers Care Research Interviewer Name Role Phone Tein Jefferson MD Primary Care Provider [phone] Encounter Details Date Type Department Care Team (Late st Contact Info) Description 1999 Outpatient Historical [facility] - [facility] [address] [facility] [address] [address] Jamia Osman MD NO ADDRESS ON FILE Social History Tobacco Use Types Packs/Day Years Used Date Smoking Tobacco: Never Assessed Comments Unknown Sex and Gender Information Value Date Recorded Sex Assigned at Not on file 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
--- OUTSIDE RECORDS SUMMARY | 2025-04-20 16:55 | XMS_ITS | Referral Summary ---
Author Organization [facility] Address [address] [place] [address] Care Team Providers Care Senior Loan Officer Name Role Phone Maryam Huggins Primary Care Provider [phone] Encounters Date Type Department Care Team Description 04/15/[address] [address] Maryam Huggins PA 04/14/[address] [address] Maryam Huggins PA Test Results 04/05/2025 10:00 AM CDT Therapy [facility] OP Physical Therapy [address] [address] Left leg numbness; History of foot fracture 03/22/2025 10:20 AM CDT Office Visit [facility]) - [facility] [address] [facility] [address] [place] [address] Selene Solomon NP Impacted cerumen of right ear (Primary Dx); Sensation of pressure in ear, bilateral; Environmental and seasonal allergies 03/17/2025 Results Follow-Up [address] [address] Maryam Huggins PA XR Knee Right 3 Vw 03/16/2025 10:01 AM CDT - 03/16/2025 11:59 PM CDT Hospital Encounter [facility] [address] [place] [address] Chronic pain of right knee; History of patellar fracture Discharge Disposition: Discharge to home or self care 03/16/2025 9:30 AM CDT Office Visit [address] [phone] Maryam Huggins PA Left leg numbness (Primary Dx); History of foot fracture; Chronic pain of right knee; History of patellar fracture; Class 1 obesity due to excess calories without serious comorbidity with body mass index (BMI) of 32.0 to 32.9 in adult 02/08/2025 Telephone [facility] ([facility]) - [facility] ENT [address] [place] [address] [place] 01/26/2025 8:15 AM SERVICE LIAISON REPRESENTATIVE Office Visit [address] [phone] Margot Hand PA Non-recurrent acute suppurative otitis media of both ears without spontaneous rupture of tympanic membranes (Primary Dx) 01/25/[address] [phone] Maryam Huggins PA Symptom Based Call 01/23/2025 Results Follow-Up [facility] Care at [address] [address] Bailey Fonseca PA Influenza A/B, RSV, and COVID-19 PCR Nasopharyngeal, Throat culture Throat 01/23/2025 5:41 PM SERVICE LIAISON REPRESENTATIVE - 01/23/2025 11:59 PM SERVICE LIAISON REPRESENTATIVE Hospital Encounter [address] [id number] Discharge Disposition: Discharge to home or self care 01/23/2025 5:35 PM SERVICE LIAISON REPRESENTATIVE - 01/23/2025 11:59 PM SERVICE LIAISON REPRESENTATIVE Hospital Encounter [address] [id number] Nasopharyngitis Discharge Disposition: Discharge to home or self care 01/23/2025 12:15 PM SERVICE LIAISON REPRESENTATIVE Office Visit [facility] at [address] [address] Bailey Fonseca PA Nasopharyngitis (Primary Dx) from Last 3 Months Allergies No known active allergies Medications cetirizine (ZyrTEC) 10 mg tablet Take 1 tablet (10 mg total) by mouth daily 30 tablet 3 11/10/20 24 Active fluticasone propionate (FLONASE) 50 mcg/actuation nasal spray Administer 2 sprays into each nostril daily 1 each 3 11/10/20 24 025 Discontinued Active Problems Problem Noted Date Diagnosed Date Seasonal allergies 12/21/2024 Assessment & Plan (12/21/2024 8:12 AM SERVICE LIAISON REPRESENTATIVE): Chronic. Controlled. Continue to follow with ENT, continue Zyrtec and Flonase as needed. Class 1 obesity due to exces s calories without serious comorbidity with body mass index (BMI) of 32.0 to 32.9 in adult 12/21/2024 Assessment & Plan (03/16/2025 9:53 AM CDT): Assessment & Plan (12/21/2024 8:11 AM SERVICE LIAISON REPRESENTATIVE): Exercise 5 days a week, 30 mins per day recommended. Eat a heart healthy diet consisting of good, healthy protein (eggs, nuts, peanut butter, chicken, fish, turkey, less pork/beef), lots of vegetables, less carbohydrates and less sugar. Vaping nicotine dependence, tobacco product 12/02 Assessment & Plan (12/21/2024 8:13 AM SERVICE LIAISON REPRESENTATIVE): Chronic. Patient not ready to quit at this time but would like to try again in the future. - Discussed options and recommend trying nicotine patches and gum. She can use the low-dose of both of these [id number]. Chronic diarrhea 02/20/2023 Assessment & Plan (12/21/2024 8:11 AM SERVICE LIAISON REPRESENTATIVE): Chronic. Stable. Continue to use Imodium as [...] Abdominal pain 02/20/2023 12/21/2024 Nausea 02/20/2023 12/21/2024 Immunizations Immunization Administration Dates Next Due DTaP [...] Unspecified 07/21/2000,0 04/21/2000 Tdap 09/18/2024,07/06/2010 Varicella 11/01/2009,04/21/2000 Social History Tobacco Use Types Packs/Day Years [...] on file Legal Sex Female 8:34 PM SERVICE LIAISON REPRESENTATIVE Gender Identity Not on file Sexual Orientation Not on file Last Filed Vital Signs [...] 03/16/2025 9:27 AM CDT Plan of Treatment Not on file Procedures Procedure Name Priority Date/Time Associated Diagnosis Comments XR KNEE RIGHT 3 VIEWS Schedule Routine, Read Routine (OP Routine) 03/16/2025 10:16 AM CDT Chronic pain of right knee History of patellar fracture INFLUENZA A/B, RSV, AND COVID-19 PCR Routine 01/23/2025 5:35 PM SERVICE LIAISON REPRESENTATIVE Nasopharyngitis THROAT CULTURE Routine 01/23/2025 5:35 PM SERVICE LIAISON REPRESENTATIVE Nasopharyngitis POC INFLUENZA A/B, COVID-19 ANTIGEN Routine 01/23/2025 12:41 PM SERVICE LIAISON REPRESENTATIVE Nasopharyngitis POCT RAPID STREP Routine 01/23/2025 12:3 2 PM SERVICE LIAISON REPRESENTATIVE Nasopharyngitis HM PAP SMEAR Routine 05/26/2020 from [...] Pilo Lee M.D. MF: SERGIO Report ID: [id number] Reading Location: [id number] Procedure Note Pilo Lee MD - 03/16/2025 [...] Pilo Lee M.D. MF: SERGIO Report ID: [id number] Reading Location: [place] [address] Maryam ROTHMAN IMG XR PROCEDURES Final R esult * Influenza A/B, RSV, and COVID-19 PCR Nasopharyngeal (01/23/2025 5:35 PM SERVICE LIAISON REPRESENTATIVE) [facility] COVID-19 RNA Negative Negative Influenza A RNA Negative Negative [facility] Influenza B RNA Negative Negative [facility] RSV RNA Negative Negative [facility] Comment: Interpretive data: Testing performed by [facility]. This test is performed using the [employer] Xpert Xpress CoV-2/Flu/RSV plus assay. This is a multiplex, real-time reverse transcriptase PCR assay intended for the qualitative detection of nucleic acid from SARS-CoV-2, influenza A, influenza B, and respiratory syncytial virus. This assay has been cleared by the [place] Food and Drug administration. The performance characteristics have been verified by the [facility]. Results must be considered in the clinical context, and a negative result does not rule out infection. Interpretive Data last revised 2023 Nasopharyngeal 01/23/2025 5: 35 PM SERVICE LIAISON REPRESENTATIVE 01/23/2025 6:06 PM SERVICE LIAISON REPRESENTATIVE Narrative [facility] 01/23/2025 6:49 PM SERVICE LIAISON REPRESENTATIVE Is the Patient experiencing symptoms consistent with COVID?->Yes Bailey ROTHMAN LAB MICROBIOLOGY - GENER AL ORDERABLES Final Result [place] [address] [address] Department [place] [address] [place] * Throat culture Throat (01/23/2025 5:35 PM SERVICE LIAISON REPRESENTATIVE) Report Final Report: No growth of pathogens. Comment:Testing performed by : [facility], [address] [facility], [place]., [address] Throat 01/23/2025 5:35 PM SERVICE LIAISON REPRESENTATIVE 01/23/2025 8:41 PM SERVICE LIAISON REPRESENTATIVE Narrative KATINA BONE - 01/24/2025 5:58 PM SERVICE LIAISON REPRESENTATIVE Testing performed by [facility] Laboratory ([phone]). Bailey ROTHMAN LAB MICROBIOLOGY - GENER AL ORDERABLES Final Result K[place]INA [address] [address] Department [place] [address] * POC Influenza A/B, COVID-19 antigen (01/23/2025 12:41 PM SERVICE LIAISON REPRESENTATIVE) Influenza A Ag, POC Negative Negative [facility] Influenza B Ag, POC Negative Negative [facility] COVID-19 Ag POC Presumptive Negative Presumptive Negative, Invalid [facility] Nasal 01/23/2025 12:4 1 PM SERVICE LIAISON REPRESENTATIVE Bailey ROTHMAN POINT OF CARE TEST ORDER JIMMY Final Result Performing Organization Address City/[facility]/ZIP Co de Phone Number [facility] [address] [place] [address] * POCT rapid strep A (01/23/2025 12:32 PM SERVICE LIAISON REPRESENTATIVE) Rapid Strep A, POC Negative Negative Swab 01/23/2025 12:3 2 PM SERVICE LIAISON REPRESENTATIVE Bailey RTOHMAN POINT OF CARE TEST ORDER IJMMY Final Result * HM PAP SMEAR (05/26/2020) Historical Provider MD HEALTH MAINTENANCE Final Result from Last 3 Months or Most Recently Relevant to Health Maintenance Insurance [facility] [facility] EMPLOYEE [employer] Address: [facility] [address] [place] [address] [facility] [employer] Address: [facility] [id number] [place] [address] Care Teams Senior Loan Officer Relationship Specialty Start Date End Date Maryam Huggins PA [address] [place] [address] PCP - General Family Medicine 12/21/24
--- OUTSIDE RECORDS SUMMARY | 2025-04-20 16:55 | XMS_ITS | Encounter Summary ---
Author Organization [facility] Address [address] [place] [address] Care Team Providers Care Steeping Press Operator Name Role Phone Tien Jefferson MD Primary Care Provider [phone] Encounter Details Date Type Department Care Team (Late st Contact Info) Description 1999 Outpatient Historical [facility] [address] [facility] [address] [address] Stella Brothers MD [address] [facility] [address] [place] [address] Social History Tobacco Use Types Packs/Day Years Used Date Smoking Tobacco: Never Assessed Comments Unknown Sex and Gender Information Value Date Recorded Sex Assigned at Not on file 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
--- OUTSIDE RECORDS SUMMARY | 2025-04-20 16:55 | XMS_ITS | Encounter Summary ---
Author Organization [facility] Address [address] [place] [address] Care Team Providers Care Farm Operator Name Role Phone Tien Jefferson MD Primary Care Provider [phone] Encounter Details Date Type Department Care Team (Late st Contact Info) Description 01/23/2006 Outpatient Historical [facility] - [facility] [address] [facility] [address] [address] Jamia Osman MD NO ADDRESS ON FILE Social History Tobacco Use Types Packs/Day Years Used Date Smoking Tobacco: Never Assessed Comments Unknown Sex and Gender Information Value Date Recorded Sex Assigned at Not on file 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 [address] [place] [address] PCP - General Internal Medicine 04/19/19 documented as of this encounter
--- OUTSIDE RECORDS SUMMARY | 2025-04-20 16:55 | XMS_ITS | Encounter Summary ---
Author Organization [employer] [facility] Address 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
--- OUTSIDE RECORDS SUMMARY | 2025-04-20 16:55 | XMS_ITS | Encounter Summary ---
Author Organization [facility] Address [address] [place] [address] Care Team Providers Care Classer Name Role Phone Tien Jefferson MD Primary Care Provider [phone] Encounter Details Date Type Department Care Team (Late st Contact Info) Description 09/18/2006 Outpatient Historical [facility] - [facility] [address] [facility] [address] [address] Jamia Osman MD NO ADDRESS ON FILE Social History Tobacco Use Types Packs/Day Years Used Date Smoking Tobacco: Never Assessed Comments Unknown Sex and Gender Information Value Date Recorded Sex Assigned at Not on file 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
--- OUTSIDE RECORDS SUMMARY | 2025-04-20 16:55 | XMS_ITS | Encounter Summary ---
Author Organization [employer] Address 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
--- OUTSIDE RECORDS SUMMARY | 2025-04-20 16:55 | XMS_ITS | Encounter Summary ---
Author Organization [facility] Address [address] [place] [address] Care Team Providers Care Special Education Director Name Role Phone Tien Jefferson MD Primary Care Provider [phone] Encounter Details Date Type Department Care Team (Late st Contact Info) Description 02/08/2006 Outpatient Historical [facility] Pediatrics - [facility] [address] [facility] [address] [address] Stella Brothers MD [address] [facility] [address] [place] [address] Social History Tobacco Use Types Packs/Day Years Used Date Smoking Tobacco: Never Assessed Comments Unknown Sex and Gender Information Value Date Recorded Sex Assigned at Not on file 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
--- OUTSIDE RECORDS SUMMARY | 2025-04-20 16:55 | XMS_ITS | Encounter Summary ---
Author Organization [facility] Address [address] [place] [address] Care Team Providers Care Vector Control Specialist Name Role Phone Tien Jefferson MD Primary Care Provider [phone] Encounter Details Date Type Department Care Team (Late st Contact Info) Description 1999 Outpatient Historical [facility] Pediatrics - [facility] [address] [facility] [address] [address] Jamia Osman MD NO ADDRESS ON FILE Social History Tobacco Use Types Packs/Day Years Used Date Smoking Tobacco: Never Assessed Comments Unknown Sex and Gender Information Value Date Recorded Sex Assigned at Not on file 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
--- OUTSIDE RECORDS SUMMARY | 2025-04-20 16:55 | XMS_ITS | Encounter Summary ---
Author Organization [facility] Address [address] [place] [address] Care Team Providers Care Fishing Tool Technician Oil Well Name Role Phone Tien Jefferson MD Primary Care Provider [phone] Encounter Details Date Type Department Care Team (Late st Contact Info) Description 1999 Outpatient Historical [facility] - [facility] [address] [facility] [address] [address] Jamia Osman MD NO ADDRESS ON FILE Social History Tobacco Use Types Packs/Day Years Used Date Smoking Tobacco: Never Assessed Comments Unknown Sex and Gender Information Value Date Recorded Sex Assigned at Not on file Legal Sex Female 2:03 AM STEWARD/STEWARDESS BANQUET Gender Identity Not on file Sexual Orientation Not on file documented as of this encounter Plan of Treatment Not on file documented as of this encounter Visit Diagnoses Not on filedocumented in this encounter Care Teams Fishing Tool Technician Oil Well Relationship Specialty Start Date End Date Tien Jefferson MD [address] [facility] [address] [place] [address] PCP - General Internal Medicine 04/19/19 documented as of this encounter
--- OUTSIDE RECORDS SUMMARY | 2025-04-20 16:55 | XMS_ITS | Encounter Summary ---
Author Organization [facility] Address [address] [place] [address] Care Team Providers Care Improvement Intern Name Role Phone Tien Jefferson MD Primary Care Provider [phone] Encounter Details Date Type Department Care Team (Late st Contact Info) Description 1999 Outpatient Historical [facility] Pediatrics - [facility] [address] [facility] [address] [address] Jamia Osman MD NO ADDRESS ON FILE Social History Tobacco Use Types Packs/Day Years Used Date Smoking Tobacco: Never Assessed Comments Unknown Sex and Gender Information Value Date Recorded Sex Assigned at Not on file 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
--- OUTSIDE RECORDS SUMMARY | 2025-04-20 16:55 | XMS_ITS | Encounter Summary ---
Author Organization [facility] Address [address] [place] [address] Care Team Providers Care Oil Well Service Operator Helper Name Role Phone Tien Jefferson MD Primary Care Provider [phone] Encounter Details Date Type Department Care Team (Late st Contact Info) Description 1999 Outpatient Historical [facility] Pediatrics - [facility] [address] [facility] [address] [address] Jamia Osman MD NO ADDRESS ON FILE Social History Tobacco Use Types Packs/Day Years Used Date Smoking Tobacco: Never Assessed Comments Unknown Sex and Gender Information Value Date Recorded Sex Assigned at Not on file 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
--- OUTSIDE RECORDS SUMMARY | 2025-04-20 16:55 | XMS_ITS | Encounter Summary ---
Author Organization [facility] Address [address] [place] [address] Care Team Providers Care Brineyard Supervisor Name Role Phone Tien Jefferson MD Primary Care Provider [phone] Encounter Details Date Type Department Care Team (Late st Contact Info) Description 01/27/2003 Outpatient Historical [facility] Pediatrics - [facility] [address] [facility] [address] [address] Dillan Stokes MD [address] [place], [place] [id number] [place] [address] Social History Tobacco Use Types Packs/Day Years Used Date Smoking Tobacco: Never Assessed Comments Unknown Sex and Gender Information Value Date Recorded Sex Assigned at Not on file 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
--- OUTSIDE RECORDS SUMMARY | 2025-04-20 16:55 | XMS_ITS | Encounter Summary ---
Author Organization [facility] Address 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
--- OUTSIDE RECORDS SUMMARY | 2025-04-20 16:55 | XMS_ITS | Encounter Summary ---
Author Organization [facility] Address [address] [place] [address] Care Team Providers Care Stock Grader Name Role Phone Tien Jefferson MD Primary Care Provider [phone] Encounter Details Date Type Department Care Team (Late st Contact Info) Description 1999 Outpatient Historical [facility] Pediatrics - [facility] [address] 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
--- OUTSIDE RECORDS SUMMARY | 2025-04-20 16:55 | XMS_ITS | Encounter Summary ---
Author Organization [facility] Address [address] [place] [address] Care Team Providers Care Battery Assembler Name Role Phone Maryam Huggins Primary Care Provider [phone] Encounter Details Date Type Department Care Team (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
--- OUTSIDE RECORDS SUMMARY | 2025-04-20 16:55 | XMS_ITS | Encounter Summary ---
Author Organization [facility] Address 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
--- OUTSIDE RECORDS SUMMARY | 2025-04-20 16:57 | XMS_ITS | Continuity of Care Document ---
Author Organization [facility] Address [address] [place] [address] Phone Care Team Providers Care Cylinder Press Feeder Name Role Phone Shaheed Lainez DO Unavailable [...] Provider Providers Copied on Encounter [facility], [address], [place], [address], [phone] [facility] No Information 1 [place]. [address], [place], [place], [id number] . tel: [phone] [facility], [address], [place], [address], [place] [phone] [facility] No Information 1 Migel nelson. [address] [employer] [address] [employer] [address], [place], [place], [id number] . tel: [phone] OFFICE/OUTPA TIENT VISIT [facility], [address], [place], [address], [place] tel:[phone] [facility] Pain in right kneePatellar tendinitis of right knee 1 Starr Hobbs. [address] [employer] [address], [place], [address], [place]. tel: [phone] OFFICE/OUTPA TIENT VISIT [facility], [address] [place] [address], [address], [place] [phone] [facility] Body mass index (BMI) 26.0-26.9, adultLeft foot painPatellofemo ral disorder of right knee 9 Scerba Dalton. [address] [facility] [address], [place], [place], [id number] . tel: [phone] [facility], [address] [place] [address], [address], [place] [phone] [facility] Nondisplaced transverse fracture of right patella, subsequent encounter for closed fracture with routine healing 7 Stazzone Bharathi. [address] [place] [address], [id number] . tel: [phone] [facility], [address] [place] [address], [address], [place] [phone] [facility] Closed nondisplaced transverse fracture of right patella with routine healing, subsequent encounterS/P hardware removal 7 Stazzone Bharathi. [address] [place] [address], [id number] . tel: [phone] OFFICE/OUTPA TIENT VISIT EST [facility], [address], [address], [place] tel:[phone] [facility] [place] Closed nondisplaced transverse fracture of right patella with routine healing, subsequent encounterEncoun ter for other preprocedural examination Bowen-3 0-201 7 Stazzone Bharathi. [address] [place], [place], [id number] . tel: [phone] [facility], [address] [place] [address], [address], [place] tel:[phone] [facility] Pain due to internal orthopedic prosthetic devices, implants and grafts, initial encounter 7 Stazzone Bharathi. [address] [place] [address], [id number] . tel: [phone] OFFICE/OUTPA TIENT VISIT [facility], [address] [place] [address], [address], [place] tel:[phone] [facility] Closed nondisplaced transverse fracture of right patella with routine healing, subsequent encounter 7 Stazzone Bharathi. [address] [place] [address], [id number] . tel: [phone] [facility], [address] [place] [address], [address], [place] tel:[phone] [facility] Closed displaced transverse fracture of right patella with routine healing 7 Stazzone Bharathi. [address] [place] [address], [id number] . tel: [phone] [facility], [address] [place] [address], [address], [place] tel:[phone] [facility] Closed displaced transverse fracture of right patella with routine healing - 7 Stazzone Bharathi. [address] [place] [address], [id number] . tel: [phone] [facility], [address] [place] [address], [address], [place] tel:[phone] [facility] Closed displaced transverse fracture of right patella with routine healing 7 Stazzone Bharathi. [address] [place] [address], [id number] . tel: [phone] [facility], [address] [place] [address], [address], [place] tel:[phone] [facility] Closed displaced transverse fracture of right patella with routine healing 6 Stazzone Bharathi. [address] [place] [address], [id number] . tel: [phone] [facility], [address] [place] [address], [address], [place] tel:[phone] [facility] Displaced transverse fracture of right patella, initial encounter for closed fracture 6 Stazzone Bharathi. [address] [place] [address], [id number] . tel: [phone] OFFICE/OUTPA TIENT VISIT EST [facility], [address] [place] [address], [address], [place] [phone] [facility] Closed displaced transverse fracture of right patella, initial encounterEncoun ter for pre-operative examination 6 Stazzone Bharathi. [address] [place] [address], [id number] . tel: [phone] [facility], [address] [place] [address], [address], [place] [phone] [facility] Midline low back pain without sciatica 5 Mil Puga. [address] [facility] [address], [place], [address]. tel: [phone] [facility], [address] [place] [address], [address], [place] [phone] [facility] Low back pain Aug-2 4-201 5 Mil Puga. [address], [place], [address]. tel: [phone] [facility], [address] [place] [address], [address], tel:[phone] [facility] Closed fracture of foot 4 Mil Puga. [address], [place], [address]. tel: [phone] [facility], [address] [place] [address], [address], [place] tel:[phone] [facility] Closed fracture of foot 4 Mil Puga. [address], [place], [address]. tel: [phone] Referring Provider: Jamia Rodriguez, [address], [place], [address] . tel:[phone] [facility], [address] [place] [address], [address], [place] tel:[phone] [facility] Nonunion of fracture 4 Mil Puga. [address], [place], [address]. tel: [phone] [facility], [address] [place] [address], [address], [place] tel:[phone] [facility] Post-op (chief complaint) Nonunion of fracture 4 Mil Puga. [address], [place], [address]. tel: [phone] Family History Family Member Type Diagnosis Age At Onset Mother Problem (finding) Alive and well Father Problem (finding) Alive and well Payers Payer name Insurance type Covered constitution party ID Authoriza tion(s) [employer] Open Acces s Plus E2 OT [id number] Social History Type Description Quantity Date Captured [...] Information Instructions Date Instruction Additional Infor mation Giving encouragement to exercise Related to Body mass index (BMI) 26.0-26.9, adult Activity as tolerated. Related t o Patellofemoral disorder of right knee Ice as tolerated Related to [place] llofemoral disorder of right knee Ice or heat for comfort Related to Patellofemoral disorder of right knee Assessments Type Assessment Date No Information Patient Care Teams Name Effective Dates (start - stop) Status Members No Information
[2025-04-20 17:01] VITALS: BP 130/72; PULSE 72; RESP 16; TEMP 36.6; O2SAT 100
== END 2025-04-20 17:38 | disposition home or self-care (01) ==
PROVIDERS: Emergency Provider Nurse Practitioner Family
DX: S93.601A Unspecified sprain of right foot, initial encounter (principal); X58.XXXA Exposure to other specified factors, initial encounter
CPT/HCPCS: 73610; 99203; G0463